=== PATIENT | female | born 1990 | race Caucasian/White ===

== ENCOUNTER 2020-03-31 17:54 | Inpatient (IN) ==
--- OUTSIDE RECORDS SUMMARY | 2020-03-31 17:56 | External Medical Summary | Continuity of Care Document ---
:1990 Author Name Humberto Glasgow Address Unavailable Unavailable , Care Team Providers Name Role Phone Maryjo Palomino M.D. Unavailable [email or web address]rocio [place] M.D. Unavailable [email or web address] Marylu [email or web address] Unavailable Unavailable Unavailable Unavailable Unavailable Assessments Assessed Problems:Acute sinusitis Problems Acute sinusitis (461.9) (J01.90) Conjunctivitis (372.30) (H10.9) Allergies and Adverse Reactions Sulfa Drugs (Allergy) Reaction: Hives Medications Amoxicillin 875 MG Oral Tablet; TAKE 1 TABLET EVERY 12 HOURS DAILY. Pee Palomino Start: 27-May-2012 Quantity: 20 Refills: 1 ISOtretinoin CAPS Refills: 0 Tobramycin Sulfate 0.3 % SOLN; INSTILL 1 DROP 3 times daily Pee Peterson Start: 25-Apr-2012 Quantity: 1 5 ML Bottle Refills: 0 Procedures Procedures not documented Immunizations Immunizations not documented Interventions Medication ChangesAmoxicillin 875 MG Oral Tablet - Start Plan of Treatment Planned Observations Planned Goals not documented Results No Known Results Results not documented Encounters Appointment; Serenity Palomino M.D. 27-May-2012 15:15 Encounter Diagnosis: Problem not documented
--- OUTSIDE RECORDS SUMMARY | 2020-03-31 17:57 | External Medical Summary | Continuity of Care Document ---
:1990 Author Name Humberto Glasgow Address Unavailable Unavailable , Care Team Providers Name Role Phone Maryjo Palomino M.D. Unavailable [email or web address] [place] Ambrocio [place] M.D. Unavailable [email or web address] [place] Marylu BREWER Unavailable Unavailable Unavailable Unavailable Unavailable Assessments Assessed Problems:Acute sinusitis Problems Conjunctivitis (372.30) (H10.9) Acute sinusitis (461.9) (J01.90) Allergies and Adverse Reactions Sulfa Drugs (Allergy) Reaction: Hives Medications ISOtretinoin CAPS Refills: 0 Tobramycin Sulfate 0.3 % SOLN; INSTILL 1 DROP 3 times daily Pee Peterson Start: 25-Apr-2012 Quantity: 1 5 ML Bottle Refills: 0 Amoxicillin 875 MG Oral Tablet; TAKE 1 TABLET EVERY 12 HOURS DAILY. Pee Palomino Start: 27-May-2012 Quantity: 20 Refills: 1 Procedures Procedures not documented Immunizations Immunizations not documented Interventions Medication ChangesAmoxicillin 875 MG Oral Tablet - Start Plan of Treatment Planned Observations Planned Goals not documented Results No Known Results Results not documented Encounters Appointment; Serenity Palomino M.D. 27-May-2012 15:15 Encounter Diagnosis: Problem not documented
--- NOTE | 2020-03-31 18:48 | Emergency Department Note ---
Impression & Plan Chest pain, Elevated troponin, Abnormal EKG ED Provider Note NAME: BETTINA MORALES AGE: 29 SEX: F : 1990 ARRIVES VIA: Walk-In INFORMANT: Patient, ED PROVIDER(S): Matthew Don DO CHIEF COMPLAINT: Chest pain HPI: Patient is a 29-year-old female with a past medical history of pericarditis that presents the ER for chest pain. She notes that she has had pericarditis twice. She had it once back in 2015 and once this past September when she completed treatment. Since September she has had chest pain off and on about once a week. She notes that recently this morning at around 4 AM it has been persistent. She describes it as a heaviness left side of her chest and goes into her left arm. It has been constant. Describes as a 4 out of 10. She notes she does have a knot in her stomach. No abdominal pain vomiting or diarrhea. No dysuria urgency or frequency. Patient denies diabetes, hypertension, hyperlipidemia, CAD, history of sudden at a young age, and smoking. Patient denies swelling of calves, recent trips, history of immobilization or recent surgery, prior history of DVT, hemoptysis, or history of malignancy. Admits to estrogen-based control. She does believe the pain is better with up walking around and worse with rest. Does not change with sitting up or or breathing but is better when she is up moving around. ROS: See above HPI for pertinent positives & negatives. A total of 10 systems reviewed and were otherwise negative. PAST MEDICAL HISTORY:See Below PAST SURGICAL HISTORY:See Below FAMILY HISTORY:See Below SOCIAL HISTORY:See Below HOME MEDICATIONS:See Below ALLERGIES:See Below VITALS:See Below PHYSICAL EXAMINATION: GENERAL: Sitting up in bed, alert, well appearing, well nourished, no distress, non-toxic EYE EXAM: normal conjunctiva. PERRL and EOM's grossly intact. OROPHARYNX: no exudate, no erythema, lips, buccal mucosa, and tongue normal and mucous membranes are moist NECK: supple, no nuchal rigidity, no adenopathy, non-tender LUNGS: Clear to auscultation. Normal chest wall mechanics HEART: no murmurs, S1 normal and S2 normal ABDOMEN: abdomen soft, non-tender, normo-active bowel sounds, no masses, no rebound or guarding. BACK: Back is symmetrical on inspection and there is no deformity, no midline tenderness, no CVA tenderness. SKIN: no rashes and no bruising UPPER EXTREMITIES: upper extremities are grossly normal. LOWER EXTREMITIES: No pitting edema. Calves are equal bilateral NEURO EXAM: Normal sensorium, cranial nerves II-XII grossly intact, normal speech, no gross weakness of arms, no gross weakness of legs. MEDICAL DECISION MAKING: Patient is a 29-year-old female with a past medical history of pericarditis who presents the ER for chest pain. She notes that this is been present intermittently since September 2019. She gets it about 1-2 times a week. Patient also started this morning around 4 AM and has been severe and persistent. Feels like her previous pericarditis. She denies any fevers or recent sickness. It is not positional. She has no cardiac or PE risk factors with the exception that she takes control. CBC shows no significant leukocytosis or anemia. INR was unremarkable. BMP along with LFTs bilirubin and lipase were normal. TSH was normal. Troponin was elevated 0.055. D-dimer is negative. She was tachycardic. EKG showed new ST wave changes in the inferior and lateral leads. Short [place] interval. Epic was reviewed and recent negative dobutamine stress this November. This in combination with her age and history and presentation I do not feel this consistent with ACS. I did discuss this with cardiology and they agreed. She was given aspirin. Did treat her with colchicine as well. Updated the patient at bedside. Discussed with the hospitalist patient will be admitted for further work-up of her likely shalini/pericarditis. Bedside ultrasound performed by myself focus limited cardiac shows no pericardial effusion. Triage Nursing notes reviewed. Prior medical records reviewed Vital Signs: reviewed and remarkable for tachycardic Differential diagnosis: Differential diagnoses includes but is not limited to acute coronary syndrome, myocardial infarction, pericarditis, pulmonary embolus, aortic dissection, pneumonia, pneumothorax, musculoskeletal, shingles, esophageal. ER treatment provided: See below Diagnostics interpreted by me: ECG: Sinus rhythm rate of 99 Normal axis Short [place] Nonspecific ST wave changes in the inferior and lateral leads Normal QTC ST wave changes are new in comparison to her old EKG on December 30, 2019 Cardiac Monitoring: An order was placed for continuous cardiac monitoring. The monitor shows a rate of 105 with sinus rhythm. Laboratory studies: As stated above and show below. Imaging studies: Portable AP upright 1 view of the chest shows no focal infiltrate. Consultation(s): Discussed with Dr. Rodriguez who for admission to the [facility] hospitalist team. Discussed with Dr. Damir Sanders from [facility] cardiology. Agrees with colchicine and treatment as pericarditis at this time. ED COURSE: Procedures: none Critical Care: None Past Med/Surg History Social History Feels Safe at Home: Yes Smoking Status: Never smoker Allergies Allergies Allergy/AdvReac Type Severity Reaction Status Date / Time Sulfa (Sulfonamide Allergy Intermediate Rash/Hives Verified 03/31/20 19:40 Antibiotics) Home Meds Home Medications Medication Instructions Recorded Confirmed levonorgestrel-ethinyl estrad 1 tab PO DAILY 03/31/20 03/31/20 [Cyndi (28)] omeprazole magnesium [Prilosec OTC] 20 mg PO DAILY PRN 03/31/20 03/31/20 Results & Data (ED) Vital Signs Vital Signs - 24 hr 03/31/20 17:58 03/31/20 18:47 03/31/20 19:56 Temperature 36.8 C Temperature Source Oral Pulse Rate 104 H Pulse Rate [Apical] 97 H Respiratory Rate 19 17 Respiratory Effort / Characteristics Non-Labored Spontaneous Respiratory Depth Normal Respiratory Pattern Regular Blood Pressure 125/91 Blood Pressure [Left Arm] 117/77 Blood Pressure Mean 102 Blood Pressure Mean [Left Arm] 90 Blood Pressure Position Sitting Blood Pressure Position [Left Arm] Sitting Pulse Oximetry 100 97 98 Oxygen Delivery Method Room Air Room Air Sepsis Recent Fever Within 48 Hours No Sepsis Action Taken by Nursing No Action Required Laboratory Data Result diagrams: 03/31/20 18:40 03/31/20 18:40 Lab Results 03/31/20 03/31/20 03/31/20 Range/Units 18:40 18:40 18:40 WBC 8.62 (4.8-10.8) K/uL RBC 4.38 (4.2-5.4) M/uL Hgb 14.5 (12.0-16.0) g/dL Hct 41.4 (37-47) % MCV 94.5 (80-100) fL MCH 33.1 (25-34) pg MCHC 35.0 (32-36) g/dL RDW Std Deviation 40.5 (36.4-46.3) fL RDW Coeff of Dyan 11.9 (11.5-14.5) % Plt Count 266 (130-400) K/uL MPV 9.7 (7.4-10.4) fL Immature Gran % (Auto) 0.1 % Neut % (Auto) 71.3 % Lymph % (Auto) 23.5 % Reynolds % (Auto) 4.9 % Eos % (Auto) 0.1 % Baso % (Auto) 0.1 % Immature Gran # (Auto) 0.01 (0.00-0.02) K/uL Neut # (Auto) 6.14 (1.4-6.5) K/uL Lymph # (Auto) 2.03 (1.2-3.4) K/uL Reynolds # (Auto) 0.42 (0.11-0.59) K/uL Eos # (Auto) 0.01 (0-0.5) K/uL Baso # (Auto) 0.01 (0-0.2) K/uL PT 10.7 (9.0-12.0) Seconds INR 1.0 (0.9-1.1) APTT 23.9 (21.0-31.0) Seconds PTT Ratio 0.9 D-Dimer < 190 (0-500) ug/L FEU Sodium 142 (136-145) mmol/L Potassium 3.5 (3.5-5.1) mmol/L Chloride 112 H (98-107) mmol/L Carbon Dioxide 24 (21-32) mmol/L Anion Gap 6.0 (3-11) BUN 10 (7-18) mg/dl Creatinine 0.97 (0.6-1.2) mg/dl Est Cr Clr Drug Dosing 77.0 ml/min Est GFR ( Amer) 91.5 Est GFR (Non-Af Amer) 78.9 BUN/Creatinine Ratio 9.8 L (10-20) Glucose 125 H (70-99) mg/dl Calcium 8.9 (8.5-10.1) mg/dl Total Bilirubin 0.3 (0.2-1) mg/dl AST 11 L (15-37) U/L ALT 18 (12-78) U/L Alkaline Phosphatase 50 (45-117) U/L Troponin I 0.055 H* (0-0.045) ng/ml Total Protein 7.5 (6.4-8.2) gm/dl Albumin 4.1 (3.4-5.0) gm/dl Globulin 3.4 (2.5-4.0) gm/dl Albumin/Globulin Ratio 1.2 (0.9-2) Lipase 122 (73-393) U/L TSH 1.740 (0.300-4.500) uIu/ml Administered Medications Discontinued Medications Aspirin (Aspirin) 324 mg PO NOW STA Stop: 03/31/20 19:38 Last Admin: 03/31/20 19:55 Dose: 324 mg Documented by: [id number] Colchicine (Colcrys) 0.6 mg PO NOW ONE Stop: 03/31/20 19:50 Last Admin: 03/31/20 19:55 Dose: 0.6 mg Documented by: [id number] Discharge Plan Visit Data Chief Complaint: Cardiac Assessment Stated Complaint: LEFT-SIDED CHEST PRESSURE ED Provider: Matthew Don Discharge Problem: Chest pain, Elevated troponin, Abnormal EKG Discharge Instructions Interventions: ED Discharge Assessment Last Done: 03/31/20 21:21 Forms Stand Alone Forms: [facility] [place] Prescriptions Prescriptions: No Action levonorgestrel-ethinyl estrad [Cyndi (28)] 0.15-0.03 mg tablet 1 tab PO DAILY RF: 0 Prilosec OTC 20 mg Tablet,Delayed Release (Dr/Ec) 20 mg PO DAILY PRN (Reason: Acid Reflux) RF: 0 Discharge Problem: Chest pain Qualifiers: Chest pain type: unspecified Qualified Code(s): R07.9 - Chest pain, unspecified
[2020-03-31 18:54] LABS: Basophils # (auto) 0.01 K/uL (0-0.2); Basophils % (auto) 0.1 %; Eosinophils # (auto) 0.01 K/uL (0-0.5); Eosinophils % (auto) 0.1 %; Hematocrit (blood only) 41.4 % (37-47); Hemoglobin 14.5 g/dL (12.0-16.0); Immature Granulocytes # (auto) 0.01 K/uL (0.00-0.02); Immature Granulocytes % (auto) 0.1 %; Lymphocytes # (auto) 2.03 K/uL (1.2-3.4); Lymphocytes % (auto) 23.5 %; Mean Corpuscular Hemoglobin 33.1 pg (25-34); Mean Corpuscular Volume 94.5 fL (80-100); Mean Platelet Volume 9.7 fL (7.4-10.4); Monocytes # (auto) 0.42 K/uL (0.11-0.59); Monocytes % (auto) 4.9 %; Neutrophils # (auto) 6.14 K/uL (1.4-6.5); Neutrophils % (auto) 71.3 %; Platelet Count 266 K/uL (130-400); RDW Coefficient of Variation 11.9 % (11.5-14.5); RDW Standard Deviation 40.5 fL (36.4-46.3); Red Blood Count 4.38 M/uL (4.2-5.4); White Blood Count 8.62 K/uL (4.8-10.8)
[2020-03-31 19:06] LABS: D Dimer < 190 ug/L FEU (0-500); Partial Thromboplastin Ratio 0.9; Partial Thromboplastin Time 23.9 Seconds (21.0-31.0); Prothrombin Time 10.7 Seconds (9.0-12.0)
[2020-03-31 19:11] LABS: Albumin Level 4.1 gm/dl (3.4-5.0); BUN Creatinine Ratio 9.8 (10-20); Calcium 8.9 mg/dl (8.5-10.1); Est GFR (African American) 91.5; Est GFR (Non-African American) 78.9; Potassium 3.5 mmol/L (3.5-5.1)
--- NOTE | 2020-03-31 19:16 | XRay Report ---
XR chest 1V portable CLINICAL HISTORY: Atypical chest pain COMPARISON STUDY: No previous studies for comparison. FINDINGS: The cardiac and mediastinal contours are normal. There is no evidence of focal pulmonary co nsolidation. There is no evidence of failure. No pleural effusions are visualized.[ IMPRESSION: No active disease in the chest. ACT 112: Negative or not required by law. Electronically signed by: Darinel Pereira M.D. 03/31/2020 7:15 PM
[2020-03-31 19:30] LABS: Albumin Globulin Ratio 1.2 (0.9-2); Bilirubin,Total 0.3 mg/dl (0.2-1); Globulin 3.4 gm/dl (2.5-4.0); Thyroid Stimulating Hormone 1.74 uIu/ml (0.300-4.500); Total Protein 7.5 gm/dl (6.4-8.2); Troponin I 0.055 ng/ml (0-0.045)
[2020-03-31] MEDS ORDERED: ASPIRIN CHEW 324 MG PO STA (19:37)
[2020-03-31] MEDS ORDERED: COLCHICINE 0.6 MG TAB PO ONE (19:49)
[2020-03-31] MEDS ORDERED: POLYETHYLENE (MIRALAX) 17 GM PACK PO PRN (22:08)
[2020-03-31] MEDS ORDERED: NITROGLYCERIN SL 0.4 MG/TAB TAB SL PRN (22:08)
[2020-03-31] MEDS ORDERED: MoRPHine SULFATE 2 MG/ML CARP IV PRN (22:08)
[2020-03-31] MEDS ORDERED: ONDANSETRON INJ 2 MG/ML 2 ML VIAL IV PRN (22:08)
[2020-03-31] MEDS ORDERED: ACETAMINOPHEN 325 MG TAB PO PRN (22:08)
[2020-03-31] MEDS ORDERED: PANTOprazole 40 MG TAB PO PRN (22:12)
[2020-03-31] MEDS: SODIUM CHLORIDE 0.9% 1000ML 1,000 ML IV SCH (23:15)
--- NOTE | 2020-04-01 00:02 | History and Physical Report ---
DATE OF ADMISSION: 03/31/2020 CHIEF COMPLAINT: Chest pain. HISTORY OF PRESENT ILLNESS: A 29-year-old female with past medical history significant for recurrent pericarditis, presents with chest pain. The patient has finished a course of colchicine in September, but she says still has some lingering chest pains. Recently saw cardiology and in November she had a stress echo which was negative, but today morning she woke up with severe chest pain on the left side. It was more severe than her lingering chest pain and there was also some tingling feeling in her left hand which prompted her to come to the ER. Her troponin is slightly elevated at 0.05. ER physician notified cardiology paraprofessional aide and advised to give colchicine. Currently resting comfortably and hemodynamically stable, still has mild chest discomfort. The pain is not associated with any position. Denies any shortness of breath. No cough, no fever, no chills, no headache, no blurred vision, no earache, no runny nose, no sore throat. Appetite is okay. Normal bowel and bladder movements. Otherwise active. Denies any sick contacts or travel out of [place] or any loss of smell or taste. ALLERGIES: SULFA ANTIBIOTICS. PAST MEDICAL HISTORY: As mentioned above. PAST SURGICAL HISTORY: Dental surgery, EGDs. MEDICATIONS: On omeprazole 20 mg p.o. daily and levonorgestrel/ethinyl one tablet daily. FAMILY HISTORY: Significant for father had heart disorder, paternal grandfather had heart attack. SOCIAL HISTORY: . No smoking. Alcohol occasionally. No drug use. REVIEW OF SYSTEMS: As per HPI. Rest of review of systems negative. PHYSICAL EXAMINATION: GENERAL: The patient is of moderate build, not in acute distress. VITAL SIGNS: Temperature 37.4, pulse 94, respiratory rate 16, blood pressure 116/70, oxygen 98% on room air. HEENT: No pallor, no icterus. Pupils equal, round, and reactive to light. NECK: No JVD, no neck masses. Supple. CARDIOVASCULAR: S1, S2 heard, regular rate and rhythm, no murmur, no gallop. RESPIRATORY SYSTEM: Normal AP diameter. No accessory muscle use. No wheezing, no crackles. ABDOMEN: Soft, bowel sounds present, nontender. No distention. CENTRAL NERVOUS SYSTEM: Cranial nerves II-XII grossly intact. Nonfocal. EXTREMITIES: No edema, no erythema. LABORATORY DATA: WBC 8.6, hemoglobin 14.5, hematocrit 41.4, platelets 266. PT 10.7, INR 1, APTT 23.9. Sodium 142, potassium 3.5, chloride 112, bicarbonate 24, BUN 10, creatinine 0.9, serum glucose 125, calcium 8.9, total bilirubin 0.3, AST 11, ALT 18, alkaline phosphatase 50. Troponin I of 0.05. Lipase 122. TSH 1.7. EKG: Normal sinus rhythm with sinus arrhythmia at rate of 99, nonspecific ST abnormalities seen. ASSESSMENT AND PLAN: This is a 29-year-old female with history of recurrent pericarditis, who presents with chest pain. 1. Chest pain, possible recurrent pericarditis. History of recurrent pericarditis treated with colchicine. Recent stress echo was unremarkable in November. Troponin is mildly elevated at 0.05. We will trend the cardiac enzymes, echocardiogram. ER physician notified to cardiology paraprofessional aide and recommended colchicine, which the patient has one dose. Will continue with colchicine 0.6 mg p.o. b.i.d. and consult cardiology in a.m. for further recommendations. 2. Gastroesophageal reflux disease, continue omeprazole. 3. Deep venous thrombosis prophylaxis, sequential compression devices. DISPOSITION: Closely monitor in the tele floor. Level 1 full code. MTDD
[2020-04-01 06:13] LABS: Basophils # (auto) 0.01 K/uL (0-0.2); Basophils % (auto) 0.1 %; Eosinophils # (auto) 0.01 K/uL (0-0.5); Eosinophils % (auto) 0.1 %; Hematocrit (blood only) 38.6 % (37-47); Hemoglobin 13.1 g/dL (12.0-16.0); Immature Granulocytes # (auto) 0.02 K/uL (0.00-0.02); Immature Granulocytes % (auto) 0.3 %; Lymphocytes # (auto) 2.18 K/uL (1.2-3.4); Lymphocytes % (auto) 27.3 %; Mean Corpuscular Hemoglobin 32.3 pg (25-34); Mean Corpuscular Hgb Conc 33.9 g/dL (32-36); Mean Corpuscular Volume 95.3 fL (80-100); Mean Platelet Volume 9.7 fL (7.4-10.4); Monocytes # (auto) 0.54 K/uL (0.11-0.59); Monocytes % (auto) 6.8 %; Neutrophils # (auto) 5.24 K/uL (1.4-6.5); Neutrophils % (auto) 65.4 %; Platelet Count 243 K/uL (130-400); RDW Coefficient of Variation 12.1 % (11.5-14.5); RDW Standard Deviation 41.8 fL (36.4-46.3); Red Blood Count 4.05 M/uL (4.2-5.4)
[2020-04-01 06:49] LABS: BUN Creatinine Ratio 11.3 (10-20); Calcium 8.8 mg/dl (8.5-10.1); Creatinine Clr Calc Pharmacy 80.6 ml/min; Est GFR (African American) 98.8; Est GFR (Non-African American) 85.3; Magnesium 2.2 mg/dl (1.8-2.4); Potassium 3.8 mmol/L (3.5-5.1)
[2020-04-01 06:58] LABS: Troponin I 0.053 ng/ml (0-0.045)
[2020-04-01] MEDS ORDERED: COLCHICINE 0.6 MG TAB PO SCH (09:00)
[2020-04-01] MEDS ORDERED: ASPIRIN 81 MG ECTAB PO SCH (09:00)
[2020-04-01] MEDS ORDERED: Nursing to Pharmacy Communication ONE ×2 (11:04→12:18)
[2020-04-01] MEDS ORDERED: IBUPROFEN 600 MG TAB PO ONE (11:15)
[2020-04-01] MEDS: SODIUM CHLORIDE 0.9% 1000ML 1,000 ML IV SCH (12:47)
--- NOTE | 2020-04-01 13:34 | Cardiology Consultation ---
Date of Consultation April 01, 2020 Assessment & Plan (1) Recurrent idiopathic pericarditis: It was my pleasure to see Mrs. Montalvo in consultation today. The pathophysiology, possible causes along with treatment options were discussed with her today at great lengths in terms of her recurrent pericarditis. Luckily, she is known to our clinic and follows with Dr. Alcantar. She was actually supposed to have an MRI performed, unfortunately, it was postponed due to the current pandemic. At this point I believe the most prudent course of action will be to restart her on colchicine which she has tolerated well in the past. I would also recommend PRN ibuprofen 600 mg every 8 hours as needed, to be taken with food. In the past she is taking Pepcid while taking the colchicine and she has tolerated that without any significant issues and I recommend that be restarted as well. It is okay to discharge to home once she feels up to it. My office will call to arrange sooner follow-up and see if we can get the MRI performed sooner rather than later. She also be referred to our rheumatology colleagues for further work-up as well. (2) Anxiety: History of Present Illness Reason for Consultation: Chest pain Requesting Physician: Dr. Reyes Attending Physician: Layla Flower MD History of Present Illness It was my pleasure to see Mrs. Montalvo in consultation today apr 01 2020. She is a very pleasant 29-year-old woman who follows with Dr. Alcantar of our cardiology practice for recurrent pericarditis. She presented to [facility] emergency department in the evening of 03/31/2020 with complaints of chest pain. She has a longstanding history of recurrent idiopathic pericarditis dating back to 2016. She was initially evaluated with a compressor technician in [facility] where she lived at that time and most recently is been following with us at [facility]. She does have chronic nagging chest discomfort which usually feels like little episodes of pressure or sharp stabbing discomfort. However in the morning before arrival she developed a severe heaviness along her left precordium with radiation down her left arm. She states it was constant and rates as a 4 out of 10 on a pain scale. She states that this is similar to her previous flares of her pericarditis in the past. After the symptoms persisted all day she came in the emergency department. Upon arrival her work-up in the emergency department was unremarkable and her care was discussed with the on-call compressor technician who recommended restarting colchicine. She was admitted to telemetry and states that since initiation of the colchicine her chest discomfort has subsided. She states that still there but not nearly as severe as presentation. In the last several weeks she states that she is been in her normal state of health. She does note that she has had increasing levels of stress and possibly anxiety as of late and is starting to question whether or not this might be worsening her chest discomfort. She denies any sick contacts, fevers, myalgias, chills or tick bites. Her most recent flare of pericarditis was in September 2019 at which time she was seen at [facility] and treated with colchicine. She had a stress echocardiogram that was nonischemic at that time and an outpatient cardiac MRI was ordered. Unfortunately MRI has been postponed due to the current pandemic and is not yet been completed. Allergies Allergy/AdvReac Type Severity Reaction Status Date / Time Sulfa (Sulfonamide Allergy Intermediate Rash/Hives Verified 03/31/20 19:40 Antibiotics) Home Medications Home Medications Medication Instructions Recorded Confirmed Type levonorgestrel-ethinyl estrad 1 tab PO DAILY 03/31/20 03/31/20 History [Cyndi (28)] colchicine [Colcrys] 0.6 mg PO BID #60 tab 04/01/20 Rx ibuprofen 600 mg PO Q8H PRN #90 tab 04/01/20 Rx omeprazole 20 mg PO DAILY #30 cap 04/01/20 Rx Patient History Social History Preferred Language: Algerian Communication Ability: Effective Assistant Import Manager Required: No Beliefs That Will Affect Care: None Current Living Situation: Spouse Feels Safe at Home: Yes Safety Concerns: Feels Safe At This Time Smoking Status: Never smoker Do You Dip or Chew Tobacco: No ; Hx Alcohol Use: Yes Alcohol type: beer and wine Hx Substance Use: No Review of Systems Review of Systems: All systems reviewed & are unremarkable except as noted in HPI & below Physical Exam Physical Exam: Physical Exam: General: Awake, alert and oriented x 3. No acute distress. HEENT: Normocephalic, atraumatic. Pupils equal, round and reactive to light and accommodation. Extraocular muscles are intact. Anicteric sclera. Moist mucous membranes. Neck: No JVD. No bruit. Cardiovascular: Regular. No S-4. Normal S-1 and S-2. No S-3. No murmurs, rubs or gallops. Pulmonary: Clear to auscultation bilaterally. No rales, rhonchi, or wheezing. Abdomen: Bowel sounds x 4, soft. No rebound, guarding or tenderness. No organomegaly. Extremities: No clubbing, cyanosis or edema. +2 pedal pulses bilaterally. Skin: Warm and dry. Results & Data ([facility]) Vital Signs (Past 12 Hours) Vital Signs Temp Pulse Pulse Resp BP Pulse Ox 04/01/20 12:32 37.1 C 98 H 18 110/71 96 04/01/20 06:40 36.9 C 87 18 103/69 97 04/01/20 03:41 37.4 C 93 H 20 109/71 97 Laboratory Results Laboratory Results - last 72 hr 03/31/20 03/31/20 03/31/20 18:40 18:40 18:40 WBC 8.62 RBC 4.38 Hgb 14.5 Hct 41.4 MCV 94.5 MCH 33.1 MCHC 35.0 RDW Std Deviation 40.5 RDW Coeff of Dyan 11.9 Plt Count 266 MPV 9.7 Immature Gran % (Auto) 0.1 Neut % (Auto) 71.3 Lymph % (Auto) 23.5 Baldwin % (Auto) 4.9 Eos % (Auto) 0.1 Baso % (Auto) 0.1 Immature Gran # (Auto) 0.01 Neut # (Auto) 6.14 Lymph # (Auto) 2.03 Baldwin # (Auto) 0.42 Eos # (Auto) 0.01 Baso # (Auto) 0.01 ESR PT 10.7 INR 1.0 APTT 23.9 PTT Ratio 0.9 D-Dimer < 190 Sodium 142 Potassium 3.5 Chloride 112 H Carbon Dioxide 24 Anion Gap 6.0 BUN 10 Creatinine 0.97 Est Cr Clr Drug Dosing 77.0 Est GFR ( Amer) 91.5 Est GFR (Non-Af Amer) 78.9 BUN/Creatinine Ratio 9.8 L Glucose 125 H Calcium 8.9 Magnesium Total Bilirubin 0.3 AST 11 L ALT 18 Alkaline Phosphatase 50 Troponin I 0.055 H* C-Reactive Protein Total Protein 7.5 Albumin 4.1 Globulin 3.4 Albumin/Globulin Ratio 1.2 Lipase 122 TSH 1.740 Rheumatoid Factor JUAN Screen Lyme Disease IgG Ab Lyme Disease IgM Ab 03/31/20 04/01/20 04/01/20 22:33 05:28 05:28 WBC 8.00 RBC 4.05 L Hgb 13.1 Hct 38.6 MCV 95.3 MCH 32.3 MCHC 33.9 RDW Std Deviation 41.8 RDW Coeff of Dyan 12.1 Plt Count 243 MPV 9.7 Immature Gran % (Auto) 0.3 Neut % (Auto) 65.4 Lymph % (Auto) 27.3 Baldwin % (Auto) 6.8 Eos % (Auto) 0.1 Baso % (Auto) 0.1 Immature Gran # (Auto) 0.02 Neut # (Auto) 5.24 Lymph # (Auto) 2.18 Baldwin # (Auto) 0.54 Eos # (Auto) 0.01 Baso # (Auto) 0.01 ESR PT INR APTT PTT Ratio D-Dimer Sodium 141 Potassium 3.8 Chloride 112 H Carbon Dioxide 24 Anion Gap 6.0 BUN 10 Creatinine 0.91 Est Cr Clr Drug Dosing 80.6 Est GFR ( Amer) 98.8 Est GFR (Non-Af Amer) 85.3 BUN/Creatinine Ratio 11.3 Glucose 88 Calcium 8.8 Magnesium 2.2 Total Bilirubin AST ALT Alkaline Phosphatase Troponin I 0.057 H* 0.053 H* C-Reactive Protein Total Protein Albumin Globulin Albumin/Globulin Ratio Lipase TSH Rheumatoid Factor JUAN Screen Lyme Disease IgG Ab Lyme Disease IgM Ab 04/01/20 04/01/20 04/01/20 10:35 10:35 10:35 WBC RBC Hgb Hct MCV MCH MCHC RDW Std Deviation RDW Coeff of Dyan Plt Count MPV Immature Gran % (Auto) Neut % (Auto) Lymph % (Auto) Baldwin % (Auto) Eos % (Auto) Baso % (Auto) Immature Gran # (Auto) Neut # (Auto) Lymph # (Auto) Baldwin # (Auto) Eos # (Auto) Baso # (Auto) ESR 7 PT INR APTT PTT Ratio D-Dimer Sodium Potassium Chloride Carbon Dioxide Anion Gap BUN Creatinine Est Cr Clr Drug Dosing Est GFR ( Amer) Est GFR (Non-Af Amer) BUN/Creatinine Ratio Glucose Calcium Magnesium Total Bilirubin AST ALT Alkaline Phosphatase Troponin I 0.061 H* C-Reactive Protein < 0.29 Total Protein Albumin Globulin Albumin/Globulin Ratio Lipase TSH Rheumatoid Factor JUAN Screen Lyme Disease IgG Ab Lyme Disease IgM Ab 04/01/20 04/01/20 10:35 10:35 WBC RBC Hgb Hct MCV MCH MCHC RDW Std Deviation RDW Coeff of Dyan Plt Count MPV Immature Gran % (Auto) Neut % (Auto) Lymph % (Auto) Baldwin % (Auto) Eos % (Auto) Baso % (Auto) Immature Gran # (Auto) Neut # (Auto) Lymph # (Auto) Baldwin # (Auto) Eos # (Auto) Baso # (Auto) ESR PT INR APTT PTT Ratio D-Dimer Sodium Potassium Chloride Carbon Dioxide Anion Gap BUN Creatinine Est Cr Clr Drug Dosing Est GFR ( Amer) Est GFR (Non-Af Amer) BUN/Creatinine Ratio Glucose Calcium Magnesium Total Bilirubin AST ALT Alkaline Phosphatase Troponin I C-Reactive Protein Total Protein Albumin Globulin Albumin/Globulin Ratio Lipase TSH Rheumatoid Factor <14 JUAN Screen NEGATIVE Lyme Disease IgG Ab Negative Lyme Disease IgM Ab Negative
[2020-04-01 15:00] LABS: Lyme Ab IgG w/WB Rflx Negative (Negative); Lyme Ab IgM w/WB Rflx Negative (Negative)
--- NOTE | 2020-04-01 16:43 | Discharge Summary ---
Date of Service April 01, 2020 Admission HPI Per Admitting Provider DICTATED BY: Philippe Reyes MD DATE OF ADMISSION: 03/31/2020 CHIEF COMPLAINT: Chest pain. HISTORY OF PRESENT ILLNESS: A 29-year-old female with past medical history significant for recurrent pericarditis, presents with chest pain. The patient has finished a course of colchicine in September, but she says still has some lingering chest pains. Recently saw cardiology and in November she had a stress echo which was negative, but today morning she woke up with severe chest pain on the left side. It was more severe than her lingering chest pain and there was also some tingling feeling in her left hand which prompted her to come to the ER. Her troponin is slightly elevated at 0.05. ER physician notified cardiology professor of education and advised to give colchicine. Currently resting comfortably and hemodynamically stable, still has mild chest discomfort. The pain is not associated with any position. Denies any shortness of breath. No cough, no fever, no chills, no headache, no blurred vision, no earache, no runny nose, no sore throat. Appetite is okay. Normal bowel and bladder movements. Otherwise active. Denies any sick contacts or travel out of [place] or any loss of smell or tas Principal Diagnosis RECURRENT PERICARDITIS Discharge Exam Constitutional WD/WN, vitals as above no acute distress Eyes PERRL, conjunctivae normal, anicteric sclerae ENMT external ear and nose normal, oropharynx normal Neck trachea midline, no thyromegaly Respiratory normal respiratory effort, lungs clear to auscultation Cardiovascular RRR, no murmur, no edema Gastrointestinal (Abdomen) normal bowel sounds, soft, nontender, no hepatosplenomegaly Musculoskeletal no cyanosis or clubbing, extremities motor strength 5/5 Skin no rashes, warm and dry Neurologic PERRL, EOMI, accommodation nl, no face palsy, no dysarthria Psychiatric A+Ox3, euthymic affect Discharge Data Allergies Allergy/AdvReac Type Severity Reaction Status Date / Time Sulfa (Sulfonamide Allergy Intermediate Rash/Hives Verified 03/31/20 19:40 Antibiotics) Consultations 03/31/20 19:50 ED Decision to Admit Stat 04/01/20 08:00 Consult Cardiology Routine Hospital Course (1) Recurrent idiopathic pericarditis: presented with chest pain prior hx of pericarditis was treated with PO Colchicine chest pain has completely resolved no complain of SOB , no fever or chills appreciate input from cardiology recommends to resume Colchicine 0.6 mg BID PRN Ibuprophen 600 mg q8 hrs as need for pain follow up with cardiology in office in 4-6 weeks stable to be discharged home today ELEVATED TROPONIN : Due to pericarditis no evidence of ACS appreciate input from cardiology recent cardiac stress test was negative no chest pain or [place] at present ECHO shows , normal EF , no wall motion abnormality , no pericardial effusion pt will be followed with cardiology in clinic scheduled for cardiac MRI as out patient DISPOSITION : discharged home today Total Time Total Time Spent Total Time Spent (In Minutes): 35 mins Discharge Plan Discharge Items Patient Disposition: Home - Self-Care Reason For Visit: CHEST PAIN Discharge Diagnosis: PERICARDITIS Activity: Resume your previous activity Non-emergency contact: Primary Care Provider Call non-emergency contact if: you have any medication questions Follow-up/Referrals: Ronnell Sanders DO [Hydrology Professor] - Jimena Neville DO [Primary Care Provider] - 04/06/20 11:20 am (04/06/2020 11:20 AM Ethan Claudio DO Family Practice [facility] ) Diet: Regular Addtl Attending Provider Instructions: FOLLOW UP WITH CARDIOLOGY , OFFICE WILL CALL YOU WITH APPOINTMENT NEW MEDICATIONS: COLCHICINE 0.6 MG TWICE DAILY IBUPROPHEN 600 MG -1 TABLET EVERY 8 HRS NEEDED FOR PAIN ( TAKE WITH FOOD ) Pending Studies at Discharge: No Stand-Alone Forms: [facility], Smoking Cessation Medications and DC Order Prescriptions: New colchicine [Colcrys] 0.6 mg Tablet 0.6 mg PO BID Qty: 60 RF: 0 ibuprofen 600 mg tablet 600 mg PO Q8H PRN (Reason: pain) Qty: 90 RF: 0 omeprazole 20 mg capsule,delayed release(DR/EC) 20 mg PO DAILY Qty: 30 RF: 2 Continued levonorgestrel-ethinyl estrad [Cyndi (28)] 0.15-0.03 mg tablet 1 tab PO DAILY RF: 0 Discontinued Prilosec OTC 20 mg Tablet,Delayed Release (Dr/Ec) 20 mg PO DAILY PRN (Reason: Acid Reflux) RF: 0 Discharge Orders: Discharge Order (Routine); Ordered 04/01/20 Ordered By: Layla Brown/Other Patient Handouts: Pericarditis Admission Data Admit Date/Time: 03/31/20 20:30 Attending Provider: Layla Flower Admit Provider: Philippe Reyes Primary Care Provider: Jimena Neville Other Providers: Philippe Reyes ; Ronnell Sanders Other Interventions: Discharge Summary Assessment (RN) Last Done: 04/01/20 15:45 DC Date/Time DO NOT enter until pt leaves facility: 04/01/20 17:40
--- NOTE | 2020-04-01 22:17 | Electrocardiogram Report ---
Test Reason : Blood Pressure : / mmHG Vent. Rate : 099 BPM Atrial Rate : 099 BPM P-R Int : 124 ms QRS Dur : 076 ms QT Int : 326 ms P-R-T Axes : 078 080 030 degrees QTc Int : 418 ms Normal sinus rhythm with sinus arrhythmia Possible Left atrial enlargement Nonspecific ST abnormality Abnormal ECG No previous ECGs available Confirmed by Joe Dowling ([id number]) on 04/01/2020 10:16:55 PM Referred By: REFERRED SELF Confirmed By:Joe Dowling
--- NOTE | 2020-04-01 22:45 | Electrocardiogram Report ---
Test Reason : Blood Pressure : / mmHG Vent. Rate : 084 BPM Atrial Rate : 084 BPM P-R Int : 124 ms QRS Dur : 078 ms QT Int : 368 ms P-R-T Axes : 071 080 022 degrees QTc Int : 434 ms Normal sinus rhythm with sinus arrhythmia Normal ECG When compared with ECG of 31-MAR-2020 18:06, No significant change was found Confirmed by Joe Dowling ([id number]) on 04/01/2020 10:45:37 PM Referred By: REFERRED SELF Confirmed By:Joe Dowling
[2020-04-02 11:35] LABS: Anti Nuclear Antibody Screen NEGATIVE (NEGATIVE); Rheumatoid Factor <14 IU/mL (<14)
== END 2020-04-01 17:40 | disposition home or self-care (01) | DRG 316 ==
LOC: ED 17:54 → 2S 20:30

== ENCOUNTER 2022-10-16 10:18 | Inpatient (IN) ==
[2022-10-16] MEDS ORDERED: LIDOCAINE 1% LOCAL 20 ML VIAL INFIL PRN (11:12)
--- NOTE | 2022-10-16 11:18 | History & Physical Report ---
Date of Service October 16, 2022 History of Present Illness Chief Complaint: onset of active labor Primary Care Provider: Jimena Neville, DO 32 F P0000 at 39 wks. admitted to L&D in active labor. GBS is negative. Allergies Allergy/AdvReac Type Severity Reaction Status Date / Time Sulfa (Sulfonamide Allergy Intermediate Rash/Hives Verified 03/31/20 19:40 Antibiotics) Home Medications Medication Instructions Recorded Confirmed Type Vitamin 10/16/22 History calcium carbonate 500 mg calcium 500 mg PO DAILY 10/16/22 10/16/22 History (1,250 mg) chewable tablet Patient History Medical History (Updated 10/16/22 @ 12:43 by Jackelyn Albright RN) Pericarditis Pre-. Established with Cardiology. 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 Review of Systems All systems reviewed & are unremarkable except as noted in HPI & below Physical Exam Constitutional: WD/WN, vitals as above Eyes: PERRL, conjunctivae normal, anicteric sclerae Respiratory: normal respiratory effort, lungs clear to auscultation Cardiovascular: RRR, no murmur, no edema Gastrointestinal (Abdomen): normal bowel sounds, soft, nontender, no hepatosplenomegaly Musculoskeletal: Extremities: extremities normal to inspection Skin: no rashes, warm and dry Neurologic: patellar DTR's 2+ bilat, sensation intact Psychiatric: A+Ox3, euthymic affect Genitourinary: no vaginal lesions, no adnexal mass normal external appearance OB Exam Abdomen: + fundal height, + vertex and + estimated weight (7-8 lbs.) Manual OB Exam: + cervical dilation 5 cm, + cervical effacement 90% and + station -1 OB Exam Monitor Tracing: + external FHT monitor used, + external uterine monitor used, + category I and + normal FHT variability Results & Data ([facility]) Vital Signs (Past 12 Hours) Vital Signs Temp Pulse Resp BP 10/16/22 10:39 113 H 102/64 10/16/22 10:32 36.7 C 113 H 18 Code Status & VTE Plan VTE Prophylaxis Plan VTE Prophylaxis will be ordered: No Monitoring External Monitor Cat 1 with regular contractions
[2022-10-16 12:23] LABS: Hematocrit (blood only) 36.4 % (34.1-44.9); Hemoglobin 12.6 g/dl (12.0-16.0); Mean Corpuscular Hemoglobin 32.7 pg (25.0-34.0); Mean Corpuscular Hgb Conc 34.6 g/dL (32.0-36.0); Mean Corpuscular Volume 94.5 fL (80.0-100.0); Mean Platelet Volume 10.4 fL (9.4-12.3); Platelet Count 258 K/uL (130-400); RDW Coefficient of Variation 12.4 % (11.5-14.5); RDW Standard Deviation 42.7 fL (36.4-46.3); Red Blood Count 3.85 M/uL (3.93-5.22); White Blood Count 13.01 K/ul (4.8-10.8)
[2022-10-16] MEDS: LACTATED RINGER'S 1,000 ML IV PRN ×3 (15:00→20:41)
[2022-10-16] MEDS ORDERED: ePHEDrine sulfate 50 MG/ML AMP ONE (15:15)
[2022-10-16] MEDS ORDERED: SODIUM CHLORIDE 0.9% INJ 10 ML VIAL ONE (15:15)
[2022-10-16] MEDS ORDERED: BUPIVACAINE 0.25% 30 ML VIAL ONE (15:15)
[2022-10-16] MEDS ORDERED: fentaNYL citrate 100 MCG/2 ML VIAL ONE (15:15)
[2022-10-16] MEDS ORDERED: LIDOCAINE 2%/EPINEPHRINE 1:200,000 20 ML SDV ONE (15:16)
[2022-10-16] MEDS ORDERED: fentaNYL 2MCG/ML ROPIVACAINE 1.25MG/ML 100 ML BAG EPI ONE (15:16)
[2022-10-16] MEDS ORDERED: ePHEDrine sulfate 50 MG/ML AMP IV PRN (15:40)
[2022-10-16] MEDS ORDERED: NALOXONE HCL 1 MG in SODIUM CHLORIDE 0.9% 1000ML 1,000 ML IV PRN (15:40)
[2022-10-16] MEDS ORDERED: diphenhydrAMINE 50 MG/ML VIAL IV PRN (15:40)
[2022-10-16] MEDS ORDERED: ONDANSETRON INJ 2 MG/ML 2 ML VIAL IV PRN (15:40)
[2022-10-16] MEDS ORDERED: fentaNYL 2MCG/ML ROPIVACAINE 1.25MG/ML 100 ML BAG EPI PRN (15:40)
[2022-10-16] MEDS ORDERED: NALOXONE HCL 0.4 MG/1 ML VIAL/CARP IV PRN (15:40)
[2022-10-16] MEDS ORDERED: NALBUPHINE HCL INJ 10 MG/ML AMP IV PRN (15:40)
--- NOTE | 2022-10-16 15:40 | Anesthesiology Consultation ---
Date of Service October 16, 2022 Assessment & Plan ASA ASA2 Proposed Anesthesia Anesthesia Type: Labor Epidural Risk / Benefits Reviewed With: PT / POA / Parent / Guardian, Accepts Plan and Informed Consent Obtained History Height/Weight Height: 5 ft 7.5 in Weight: 67.132 kg Allergies Allergy/AdvReac Type Severity Reaction Status Date / Time Sulfa (Sulfonamide Allergy Intermediate Rash/Hives Verified 03/31/20 19:40 Antibiotics) Medications Home Medications Medication Instructions Recorded Confirmed Last Taken Vitamin 10/16/22 10/15/22 calcium carbonate 500 mg calcium 500 mg PO DAILY 10/16/22 10/16/22 Unknown (1,250 mg) chewable tablet Past Medical History Medical History Pericarditis Pre-. Established with Cardiology. Exercise / Class Metabolic Activity II 4-5 Yardwork/Stairs/Walk up hill Past Surgical History Surgical History [place] teeth extracted Past Anesthesia History No Hx of Anesthesia Complications and No Family Hx of Anesthesia Complications History of PONV No Hx of PONV and No Hx of Motion Sickness Social History Smoking Status: Never smoker Hx Alcohol Use: Yes Alcohol type: beer and wine alcohol intake frequency: holidays/special occasions only Hx Substance Use: No substance use type: does not use Review of Systems denies fever/cough/ colds/ chest pain/ SOB/ YAMILA denies YAMILA Physical Exam Vital Signs Last Vital Signs Temp 37.0 C 10/16/22 15:05 Pulse 91 H 10/16/22 15:05 Resp 18 10/16/22 15:05 BP 91/53 L 10/16/22 15:05 ENMT Mouth: no TMJ abnormality and no dentition abnormality Thyromental Distance: > or= 3.5 Finger Breadths Mallampati Class: II Neck neck extension not limited Respiratory normal respiratory effort; no respiratory distress Auscultation: lungs clear to auscultation bilaterally Cardiovascular Rate/Rhythm: regular rate and regular rhythm Neurologic moves all extremities Psychiatric Orientation: alert and oriented x 3 Testing Laboratory Results 10/16/22 11:31
--- NOTE | 2022-10-16 16:28 | Labor Progress Brief Note ---
Date of Service October 16, 2022 Assessment & Plan Admission and Anticipated Discharge Date Admission Date: October 16, 2022 Physical Exam Genitourinary: Manual OB Exam: + cervical dilation 8 cm, + cervical effacement 90% and + station -1 OB Exam Monitor Tracing: + external FHT monitor used, + external uterine monitor used, + category I and + normal FHT variability Results & Data ([facility]) Vital Signs (Past 12 Hours) Vital Signs Temp Pulse Resp BP Pulse Ox 10/16/22 16:24 110 H 101/57 L 10/16/22 16:23 111 H 99 10/16/22 16:18 106 H 99/56 L 98 10/16/22 16:16 111 H 95/56 L 10/16/22 16:14 107 H 91/51 L 10/16/22 16:13 111 H 98 10/16/22 16:12 108 H 95/50 L 10/16/22 16:10 111 H 102/59 L 10/16/22 16:08 116 H 73/48 L 98 10/16/22 16:06 110 H 89/52 L 10/16/22 16:03 107 H 97 10/16/22 16:04 100 H 96/51 L 10/16/22 16:02 103 H 102/54 L 10/16/22 16:00 102 H 102/57 L 10/16/22 15:58 97 H 98 10/16/22 15:59 96 H 106/59 L 10/16/22 15:57 107 H 91 10/16/22 15:56 102 H 107/58 L 10/16/22 15:54 20 10/16/22 15:54 107 H 20 118/57 L 10/16/22 15:53 108 H 98 10/16/22 15:48 109 H 99 10/16/22 15:05 37.0 C 91 H 18 91/53 L 10/16/22 12:05 36.7 C 89 20 113/74 10/16/22 11:31 108 H 127/71 10/16/22 10:39 113 H 102/64 10/16/22 10:32 36.7 C 113 H 18 102/64
--- NOTE | 2022-10-16 19:28 | Labor Progress Brief Note ---
Date of Service October 16, 2022 Assessment & Plan Admission and Anticipated Discharge Date Admission Date: October 16, 2022 Physical Exam Genitourinary: Manual OB Exam: + cervical dilation 10 cm, + cervical effacement 100%, + station 0 and + 1 and + amniotic fluid clear OB Exam Monitor Tracing: + external FHT monitor used, + external uterine monitor used, + category I and + normal FHT variability AROM with Amni-hook clear fluid Results & Data ([facility]) Vital Signs (Past 12 Hours) Vital Signs Temp Pulse Resp BP Pulse Ox 10/16/22 19:23 120 H 100 10/16/22 19:18 89 100 10/16/22 19:13 97 H 100 10/16/22 19:08 114 H 100 10/16/22 19:03 92 H 100 10/16/22 18:58 97 H 100 10/16/22 18:55 89 108/60 10/16/22 18:53 102 H 100 10/16/22 18:48 99 H 100 10/16/22 18:43 92 H 100 10/16/22 18:41 101 H 18 98/62 L 10/16/22 18:38 91 H 100 10/16/22 18:33 98 H 100 10/16/22 18:28 113 H 100 10/16/22 18:25 93 H 18 94/58 L 10/16/22 18:23 100 H 98 10/16/22 18:18 95 H 100 10/16/22 18:13 98 H 100 10/16/22 18:08 88 100 10/16/22 18:09 85 18 107/67 10/16/22 18:03 89 100 10/16/22 17:58 98 H 100 10/16/22 17:53 84 100 10/16/22 17:54 82 109/65 10/16/22 17:48 86 100 10/16/22 17:43 92 H 100 10/16/22 17:38 91 H 18 107/69 100 10/16/22 17:33 91 H 100 10/16/22 17:28 82 100 10/16/22 17:24 79 108/67 10/16/22 17:23 82 100 10/16/22 17:18 85 100 10/16/22 17:13 96 H 100 10/16/22 17:10 98 H 109/64 10/16/22 17:08 99 H 100 10/16/22 17:03 87 100 10/16/22 16:58 103 H 100 10/16/22 16:55 105 H 20 97/62 L 10/16/22 16:53 94 H 100 10/16/22 16:48 92 H 100 10/16/22 16:43 117 H 100 10/16/22 16:38 111 H 100 10/16/22 16:33 103 H 99 10/16/22 16:34 106 H 20 101/59 L 10/16/22 16:28 99 H 100 10/16/22 16:29 101 H 20 102/61 10/16/22 16:24 110 H 20 101/57 L 10/16/22 16:23 111 H 99 10/16/22 16:18 106 H 20 99/56 L 98 10/16/22 16:16 111 H 95/56 L 10/16/22 16:14 107 H 20 91/51 L 10/16/22 16:13 111 H 98 10/16/22 16:12 108 H 20 95/50 L 10/16/22 16:10 111 H 102/59 L 10/16/22 16:08 116 H 20 73/48 L 98 10/16/22 16:06 110 H 89/52 L 10/16/22 16:03 107 H 97 10/16/22 16:04 100 H 20 96/51 L 10/16/22 16:02 103 H 102/54 L 10/16/22 16:00 102 H 20 102/57 L 10/16/22 15:58 97 H 98 10/16/22 15:59 96 H 20 106/59 L 10/16/22 15:57 107 H 91 10/16/22 15:56 102 H 107/58 L 10/16/22 15:54 20 10/16/22 15:54 107 H 20 118/57 L 10/16/22 15:53 108 H 98 10/16/22 15:48 109 H 99 10/16/22 15:05 37.0 C 91 H 18 91/53 L 10/16/22 12:05 36.7 C 89 20 113/74 10/16/22 11:31 108 H 127/71 10/16/22 10:39 113 H 102/64 10/16/22 10:32 36.7 C 113 H 18 102/64
[2022-10-16] MEDS: OXYTOCIN 30 UNITS/500 ML BAG IV PRN (21:45)
--- NOTE | 2022-10-16 22:12 | Delivery Summary ---
Vaginal Delivery Summary Date of Service October 16, 2022 Vaginal Delivery Summary Delivery Note live male KELLY over intact perineum with delayed cord clamping and Apgars 7/9 weight pending. Cord blood obtained followed by spontaneous delivery of intact placenta. Small first degree tear repaired with 3/0 Vicryl suture. EBL 300 ml. Final sponge, needle and instrument count are correct. Mom and baby stable.
[2022-10-16] MEDS ORDERED: HYDROCORTISONE ACETATE 25 MG SUPP PR PRN (22:15)
[2022-10-16] MEDS ORDERED: ACETAMINOPHEN 325 MG TAB PO PRN (22:15)
[2022-10-16] MEDS ORDERED: BENZOCAINE 20% AER SPR 82.5 GM CAN EXT PRN (22:15)
[2022-10-16] MEDS ORDERED: DIPHTHERIA/TETANUS/PERTUSSIS 0.5 ML SYR/VIAL IM ONE (22:15)
[2022-10-16] MEDS ORDERED: OXYTOCIN 30 UNITS/500 ML BAG IV PRN (22:15)
[2022-10-16] MEDS ORDERED: ACETAMINOPHEN 325 MG TAB ONE (23:08)
--- NOTE | 2022-10-16 23:24 | Anesthesia Procedure Note ---
Date of Service October 16, 2022 Anesthesia Post Epidural Note Vital Signs Vital Signs: Temp Pulse Resp BP Pulse Ox 36.9 C 96 H 16 102/63 96 10/16/22 22:27 10/16/22 23:12 10/16/22 22:57 10/16/22 23:12 10/16/22 21:54 Pain Intensity Bilateral Abdomen: Pain Intensity: 0 Head: Pain Intensity: 3 Notes Mental Status: alert / awake / arousable and participated in evaluation Nausea / Vomiting: adequately controlled Pain: adequately controlled Airway Patency, RR, SpO2: stable & adequate BP & HR: stable & adequate Hydration State: stable & adequate Neuraxial Anesthesia: was administered and sensory block is resolving Anesthetic Complications: no major complications apparent and Pt Satisfied with anesthetic care Epidural: Removed without complications and With tip intact
[2022-10-17] MEDS: OXYTOCIN 30 UNITS/500 ML BAG IV PRN (00:12)
[2022-10-17 07:40] LABS: Hematocrit (blood only) 28.9 % (34.1-44.9); Hemoglobin 10.1 g/dl (12.0-16.0); Mean Corpuscular Hemoglobin 33.4 pg (25.0-34.0); Mean Corpuscular Hgb Conc 34.9 g/dL (32.0-36.0); Mean Corpuscular Volume 95.7 fL (80.0-100.0); Mean Platelet Volume 9.9 fL (9.4-12.3); Platelet Count 213 K/uL (130-400); RDW Coefficient of Variation 12.5 % (11.5-14.5); Red Blood Count 3.02 M/uL (3.93-5.22); White Blood Count 16.52 K/ul (4.8-10.8)
[2022-10-17] MEDS: IBUPROFEN 600 MG TAB PO PRN ×4 (07:59→21:05)
[2022-10-17] MEDS: DOCUSATE SODIUM 100 MG CAP PO SCH ×2 (07:59→21:04)
[2022-10-17] MEDS: FERROUS SULFATE 325 MG TAB PO SCH (07:59)
[2022-10-17] MEDS: CALCIUM CARBONATE 500 MG CHEWABLE TAB PO SCH (07:59)
[2022-10-17] MEDS: PRENATAL VITAMIN 1 TAB PO SCH (07:59)
--- NOTE | 2022-10-17 10:08 | Obstetrical Progress Note ---
Date of Service October 17, 2022 Assessment & Plan Admission and Anticipated Discharge Date Admission Date: October 16, 2022 Subjective Patient is seen and examined. She feels well, no complaints. Ambulating without dizziness Voiding without difficulty Tolerating regular diet with out N&V Bleeding is minimal No fever/ chills/ CP/ SOB/ N&V/ Leg pain Breast feeding without problems Vital Signs Temp Pulse Pulse Pulse Resp BP BP 10/17/22 07:25 36.7 C 78 18 100/63 10/17/22 04:15 36.7 C 93 H 16 106/72 10/17/22 01:11 36.6 C 91 H 16 107/72 10/17/22 01:00 37.0 C 18 10/17/22 00:35 16 10/16/22 23:57 36.8 C 18 10/16/22 23:27 16 10/16/22 22:57 16 10/16/22 22:42 16 10/16/22 22:27 36.9 C 16 10/16/22 22:12 18 10/17/22 00:53 95 H 109/66 10/17/22 00:34 101 H 100/62 10/17/22 00:29 106 H 109/63 10/17/22 00:24 96 H 101/62 10/17/22 00:19 104 H 106/59 L 10/17/22 00:10 106 H 114/72 10/16/22 23:57 108 H 109/66 10/16/22 23:42 123 H 113/73 10/16/22 23:27 116 H 110/67 10/16/22 23:12 96 H 102/63 10/16/22 22:57 108 H 107/63 10/16/22 22:42 117 H 102/56 L 10/16/22 22:27 121 H 114/58 L 10/16/22 22:12 115 H 109/58 L Pulse Ox O2 Del Method 10/17/22 07:25 96 Room Air 10/17/22 04:15 99 Room Air 10/17/22 01:11 99 Room Air 10/17/22 01:00 10/17/22 00:35 10/16/22 23:57 10/16/22 23:27 10/16/22 22:57 10/16/22 22:42 10/16/22 22:27 10/16/22 22:12 10/17/22 00:53 10/17/22 00:34 10/17/22 00:29 10/17/22 00:24 10/17/22 00:19 10/17/22 00:10 10/16/22 23:57 10/16/22 23:42 10/16/22 23:27 10/16/22 23:12 10/16/22 22:57 10/16/22 22:42 10/16/22 22:27 10/16/22 22:12 Lab Results 10/16/22 10/16/22 10/17/22 Range/Units 11:31 12:49 07:07 WBC 13.01 H 16.52 H (4.8-10.8) K/ul RBC 3.85 L 3.02 L (3.93-5.22) M/uL Hgb 12.6 10.1 L (12.0-16.0) g/dl Hct 36.4 28.9 L (34.1-44.9) % MCV 94.5 95.7 (80.0-100.0) fL MCH 32.7 33.4 (25.0-34.0) pg MCHC 34.6 34.9 (32.0-36.0) g/dL RDW Std Deviation 42.7 43.0 (36.4-46.3) fL RDW Coeff of Dyan 12.4 12.5 (11.5-14.5) % Plt Count 258 213 (130-400) K/uL MPV 10.4 9.9 (9.4-12.3) fL SARS-CoV-2, RNA, NAAT NEGATIVE (NEGATIVE) PE: General: Alert, orientedx3, NAD Abd: soft, NT, fundus firm, below Umbilicus Perineum intact, Lochia rubra minimal Ext; NT, no edema AP: 32 yo s/p , ppd# 1 VSS Afebrile doing well Continue routine care CBC in am All questions were answered D/C home tomorrow Results & Data ([facility]) Vital Signs (Past 12 Hours) Vital Signs Temp Pulse Pulse Pulse Resp BP BP 10/17/22 07:25 36.7 C 78 18 100/63 10/17/22 04:15 36.7 C 93 H 16 106/72 10/17/22 01:11 36.6 C 91 H 16 107/72 10/17/22 01:00 37.0 C 18 10/17/22 00:35 16 10/16/22 23:57 36.8 C 18 10/16/22 23:27 16 10/16/22 22:57 16 10/16/22 22:42 16 10/16/22 22:27 36.9 C 16 10/16/22 22:12 18 10/17/22 00:53 95 H 109/66 10/17/22 00:34 101 H 100/62 10/17/22 00:29 106 H 109/63 10/17/22 00:24 96 H 101/62 10/17/22 00:19 104 H 106/59 L 10/17/22 00:10 106 H 114/72 10/16/22 23:57 108 H 109/66 10/16/22 23:42 123 H 113/73 10/16/22 23:27 116 H 110/67 10/16/22 23:12 96 H 102/63 10/16/22 22:57 108 H 107/63 10/16/22 22:42 117 H 102/56 L 10/16/22 22:27 121 H 114/58 L 10/16/22 22:12 115 H 109/58 L Pulse Ox O2 Del Method 10/17/22 07:25 96 Room Air 10/17/22 04:15 99 Room Air 10/17/22 01:11 99 Room Air 10/17/22 01:00 10/17/22 00:35 10/16/22 23:57 10/16/22 23:27 10/16/22 22:57 10/16/22 22:42 10/16/22 22:27 10/16/22 22:12 10/17/22 00:53 10/17/22 00:34 10/17/22 00:29 10/17/22 00:24 10/17/22 00:19 10/17/22 00:10 10/16/22 23:57 10/16/22 23:42 10/16/22 23:27 10/16/22 23:12 10/16/22 22:57 10/16/22 22:42 10/16/22 22:27 10/16/22 22:12
[2022-10-17] MEDS ORDERED: bisacodyL 5 MG TABEC PO SCH (20:00)
[2022-10-18] MEDS ORDERED: bisacodyL 10 MG SUPP PR PRN
[2022-10-18 07:39] LABS: Basophils # (auto) 0.03 K/uL (0-0.2); Basophils % (auto) 0.3 %; Eosinophils # (auto) 0.07 K/uL (0-0.50); Eosinophils % (auto) 0.6 %; Hematocrit (blood only) 25.8 % (34.1-44.9); Hemoglobin 8.9 g/dl (12.0-16.0); Immature Granulocytes # (auto) 0.14 K/uL (0.00-0.02); Immature Granulocytes % (auto) 1.2 %; Lymphocytes # (auto) 3.59 K/uL (1.2-3.4); Lymphocytes % (auto) 30.9 %; Mean Corpuscular Hemoglobin 33.2 pg (25.0-34.0); Mean Corpuscular Hgb Conc 34.5 g/dL (32.0-36.0); Mean Corpuscular Volume 96.3 fL (80.0-100.0); Monocytes # (auto) 0.57 K/uL (0.24-0.82); Monocytes % (auto) 4.9 %; Neutrophils # (auto) 7.21 K/uL (1.4-6.5); Neutrophils % (auto) 62.1 %; Platelet Count 214 K/uL (130-400); RDW Coefficient of Variation 12.7 % (11.5-14.5); RDW Standard Deviation 43.6 fL (36.4-46.3); Red Blood Count 2.68 M/uL (3.93-5.22); White Blood Count 11.61 K/ul (4.8-10.8)
[2022-10-18] MEDS: FERROUS SULFATE 325 MG TAB PO SCH (08:36)
[2022-10-18] MEDS: PRENATAL VITAMIN 1 TAB PO SCH (08:36)
[2022-10-18] MEDS: DOCUSATE SODIUM 100 MG CAP PO SCH (08:36)
[2022-10-18] MEDS: CALCIUM CARBONATE 500 MG CHEWABLE TAB PO SCH (08:36)
[2022-10-18] MEDS: IBUPROFEN 600 MG TAB PO PRN (08:36)
--- NOTE | 2022-10-18 10:20 | Obstetrical Progress Note ---
Date of Service October 18, 2022 Subjective Ambulation: ambulating normally Voiding: no voiding problems Passing Gas:: Yes Diet Tolerance:: regular diet Lochia:: Small Feeding Type:: breast feeding Current Pain Level(1-10): 0 doing well. plans for d/c Physical Exam Constitutional WD/WN, vitals as above Gastrointestinal (Abdomen) Inspection/Auscultation: abdomen normal to inspection fundus firm below U. abdomen soft and non-tender Musculoskeletal Extremities: extremities normal to inspection Skin no rashes, warm and dry Neurologic patellar DTR's 2+ bilat, sensation intact Psychiatric A+Ox3, euthymic affect Results & Data ([facility]) Vital Signs (Past 12 Hours) Vital Signs Temp Pulse Resp BP Pulse Ox O2 Del Method 10/18/22 07:45 36.5 C 85 16 107/76 98 Room Air 10/17/22 23:45 36.6 C 85 16 102/64 98 Room Air Laboratory Results Laboratory Results - last 72 hr 10/16/22 10/16/22 10/17/22 11:31 12:49 07:07 WBC 13.01 H 16.52 H RBC 3.85 L 3.02 L Hgb 12.6 10.1 L Hct 36.4 28.9 L MCV 94.5 95.7 MCH 32.7 33.4 MCHC 34.6 34.9 RDW Std Deviation 42.7 43.0 RDW Coeff of Dyan 12.4 12.5 Plt Count 258 213 MPV 10.4 9.9 Immature Gran % (Auto) Neut % (Auto) Lymph % (Auto) [place] % (Auto) Eos % (Auto) Baso % (Auto) Neut # (Auto) Lymph # (Auto) [place] # (Auto) Eos # (Auto) Baso # (Auto) Immature Gran # (Auto) SARS-CoV-2, RNA, NAAT NEGATIVE 10/18/22 06:53 WBC 11.61 H RBC 2.68 L Hgb 8.9 L Hct 25.8 L MCV 96.3 MCH 33.2 MCHC 34.5 RDW Std Deviation 43.6 RDW Coeff of Dyan 12.7 Plt Count 214 MPV 10.0 Immature Gran % (Auto) 1.2 Neut % (Auto) 62.1 Lymph % (Auto) 30.9 [place] % (Auto) 4.9 Eos % (Auto) 0.6 Baso % (Auto) 0.3 Neut # (Auto) 7.21 H Lymph # (Auto) 3.59 H [place] # (Auto) 0.57 Eos # (Auto) 0.07 Baso # (Auto) 0.03 Immature Gran # (Auto) 0.14 H SARS-CoV-2, RNA, NAAT
== END 2022-10-18 15:55 | disposition home or self-care (01) | DRG 807 ==
LOC: OPB 10:18 → 4S1 10:21 → 4E2 11:55 → 4S1 12:02 → 4E2 10-17 01:37

== ENCOUNTER 2024-10-02 00:22 | Inpatient (IN) ==
[2024-10-02] MEDS ORDERED: LIDOCAINE 1% LOCAL 20 ML VIAL INFIL PRN (00:57)
[2024-10-02] MEDS: LACTATED RINGER'S 1,000 ML IV SCH (01:00)
[2024-10-02] MEDS ORDERED: LACTATED RINGER'S 1,000 ML IV SCH (01:15)
[2024-10-02 01:22] LABS: Hematocrit (blood only) 35.5 % (37.0-47.0); Hemoglobin 12.6 g/dl (12.0-16.0); Mean Corpuscular Hemoglobin 32.9 pg (25.0-34.0); Mean Corpuscular Hgb Conc 35.5 g/dL (32.0-36.0); Mean Corpuscular Volume 92.7 fL (80.0-100.0); Mean Platelet Volume 9.3 fL (9.4-12.4); Platelet Count 252 K/uL (130-400); RDW Coefficient of Variation 12.2 % (11.5-14.5); RDW Standard Deviation 41.3 fL (36.4-46.3); Red Blood Count 3.83 M/uL (4.20-5.40); White Blood Count 11.61 K/ul (4.8-10.8)
[2024-10-02] MEDS: fentaNYL citrate PF 100 MCG/2 ML VIAL ONE (01:40)
[2024-10-02] MEDS: LIDOCAINE 2%/EPINEPHRINE 1:200,000 20 ML PF ONE (01:41)
[2024-10-02] MEDS: fentANYL 2 MCG/ML BUPIVacaine 0.125%-NSS 100ML BAG ONE (01:42)
--- NOTE | 2024-10-02 01:51 | Anesthesiology Consultation ---
Date of Service October 02, 2024 Assessment & Plan Chart Review Chart Review: Acceptable Risk for Labor Epidural Consults Requested none History Height/Weight Height: 5 ft 7 in Weight: 66.224 kg Allergies Allergy/AdvReac Type Severity Reaction Status Date / Time Sulfa (Sulfonamide Allergy Intermediate Rash/Hives Verified 03/31/20 19:40 Antibiotics) Medications Home Medications Medication Instructions Recorded Confirmed Last Taken Vitamin 10/16/22 10/15/22 calcium carbonate 500 mg PO DAILY 10/16/22 10/16/22 Unknown ibuprofen 600 mg tablet 600 mg PO Q6H PRN fever or pain 10/18/22 Unknown #30 tabs Active Medications Generic Name Dose Route Start Last Admin Trade Name Freq PRN Reason Stop Dose Admin Lactated Ringer's 1,000 mls @ 125 mls/hr 10/02/24 01:15 10/02/24 01:00 Lr IV 10/03/24 01:14 999 mls/hr .Q8H KURTIS Administration Past Medical History Medical History Pericarditis Pre-. Established with Cardiology. Past Surgical History Surgical History [place] teeth extracted Social History Smoking Status: Never smoker Do You Dip or Chew Tobacco: No Hx Alcohol Use: Yes Alcohol type: wine alcohol intake frequency: holidays/special occasions only Hx Substance Use: No substance use type: does not use and former substance user Physical Exam Vital Signs Last Vital Signs Temp 36.8 C 10/02/24 01:12 Pulse 114 H 10/02/24 01:50 Resp 18 10/02/24 01:12 BP 91/60 L 10/02/24 01:50 Pulse Ox 97 10/02/24 01:49 Testing Laboratory Results 10/02/24 01:07
[2024-10-02] MEDS ORDERED: fentaNYL citrate PF 100 MCG/2 ML VIAL EPI PRN (02:00)
[2024-10-02] MEDS ORDERED: BUPIVACAINE 0.25% PF 30 ML VIAL EPI PRN (02:00)
[2024-10-02] MEDS ORDERED: fentANYL 2 MCG/ML BUPIVacaine 0.125%-NSS 100ML BAG EPI PRN (02:00)
[2024-10-02] MEDS ORDERED: NALOXONE HCL 1 MG in SODIUM CHLORIDE 0.9% 1,000 ML IV PRN (02:00)
[2024-10-02] MEDS ORDERED: diphenhydrAMINE 50 MG/ML VIAL IV PRN (02:00)
[2024-10-02] MEDS ORDERED: SODIUM CHLORIDE 0.9% PF INJ 10 ML VIAL EPI PRN (02:00)
[2024-10-02] MEDS ORDERED: LIDOCAINE 2% MPF LOCAL 5 ML VIAL EPI PRN (02:00)
[2024-10-02] MEDS ORDERED: NALOXONE HCL 0.4 MG/1 ML VIAL/CARP IV PRN (02:00)
[2024-10-02] MEDS ORDERED: ROPIVACAINE 0.5% PF 5 MG/ML 20 ML VIAL EPI PRN (02:00)
[2024-10-02] MEDS ORDERED: NALBUPHINE HCL INJ 10 MG/ML AMP IV PRN (02:00)
[2024-10-02] MEDS: ePHEDrine sulfate 50 MG/ML AMP ONE (02:17)
[2024-10-02] MEDS: BUPIVACAINE 0.25% PF 30 ML VIAL ONE (02:17)
[2024-10-02] MEDS: SODIUM CHLORIDE 0.9% PF INJ 10 ML VIAL ONE (02:17)
[2024-10-02] MEDS: ePHEDrine sulfate 50 MG/ML AMP IV PRN (02:30)
[2024-10-02] MEDS: METHYLERGONOVINE MALEATE 0.2 MG/ML AMP IM ONE (04:54)
[2024-10-02] MEDS: OXYTOCIN 30 UNITS/NSS 30 UNITS/500 ML BAG IV PRN (05:01)
[2024-10-02] MEDS ORDERED: ACETAMINOPHEN W/CODEINE #3 1 TAB PO PRN (05:08)
[2024-10-02] MEDS ORDERED: HYDROCORTISONE ACETATE 25 MG SUPP PR PRN (05:08)
[2024-10-02] MEDS ORDERED: OXYTOCIN 30 UNITS/NSS 30 UNITS/500 ML BAG IV PRN (05:08)
[2024-10-02] MEDS ORDERED: ACETAMINOPHEN 325 MG TAB PO PRN (05:08)
[2024-10-02] MEDS ORDERED: BENZOCAINE 20% SPRY 85 APPLN/85 GM CAN EXT PRN (05:08)
[2024-10-02] MEDS ORDERED: oxyCODONE/ACETAMINOPHEN 5mg/325mg TAB PO PRN (05:08)
[2024-10-02] MEDS ORDERED: bisacodyL 10 MG SUPP PR PRN (05:08)
--- NOTE | 2024-10-02 05:14 | Delivery Summary ---
Vaginal Delivery Summary Date of Service October 02, 2024 Vaginal Delivery Summary Patient's been followed in the office for care and delivery. Patient arrived in active labor 7 cm dilated. Blood type is a positive. Gestation was 38 weeks 4 days. Immediately after arrival on the labor floor she received epidural anesthesia from which she got good pain control. She labor down for an hour or so then membranes were ruptured surgically fluid was clear. About an hour later she was ready to push. Head was right on the perineum. She pushed about 3 times. And delivered a live male infant. There was a nuchal cord which was easily easily reduced over the head. Shoulders were delivered without difficulty. Body was delivered without difficulty. Cord was allowed to pulse for 1 full minute after delivery. Cord was then clamped cut by the father. Cord blood was taken. With IV Pitocin running the placenta was removed intact. IM Methergine was also given in the upper thigh. Inspection of the perineum revealed a first-degree laceration. This was repaired anatomically. 3-0 Vicryl was used to approximate the vaginal mucosa out and to beyond the hymenal ring. Deep sutures used approximate the bulbocavernosus muscle. Second deep sutures used approximate the perineal body. Running subcuticular suture was used approximate perineal skin edges following this vag exam revealed no hematoma formation or sponges in the vagina patient tolerated the procedure well. Calculated blood loss was 117 mL.
[2024-10-02] MEDS: BUPIVACAINE 0.25% PF 30 ML VIAL EPI STA (05:15)
[2024-10-02] MEDS: fentaNYL citrate PF 100 MCG/2 ML VIAL EPI STA (05:15)
[2024-10-02] MEDS: LIDOCAINE 2%/EPINEPHRINE 1:200,000 20 ML PF EPI STA (05:20)
[2024-10-02] MEDS: SODIUM CHLORIDE 0.9% PF INJ 10 ML VIAL EPI STA (05:21)
[2024-10-02] MEDS: ONDANSETRON INJ 2 MG/ML 2 ML VIAL IV PRN (06:14)
[2024-10-02] MEDS: DIPHTHER/TETAN/PERTUS Vaccine (Tdap, Adol/Adult) 0.5mL IM ONE (06:49)
--- NOTE | 2024-10-02 07:40 | Anesthesia Procedure Note ---
Date of Service October 02, 2024 Anesthesia Post Epidural Note Vital Signs Vital Signs: Temp Pulse Resp BP Pulse Ox 37.0 C 96 H 18 106/60 98 10/02/24 05:26 10/02/24 07:26 10/02/24 06:11 10/02/24 07:26 10/02/24 04:44 Notes Mental Status: alert / awake / arousable and participated in evaluation Nausea / Vomiting: adequately controlled Pain: adequately controlled Airway Patency, RR, SpO2: stable & adequate BP & HR: stable & adequate Hydration State: stable & adequate Neuraxial Anesthesia: was administered and sensory block is resolving Anesthetic Complications: no major complications apparent Epidural: Removed without complications and With tip intact
[2024-10-02] MEDS: DOCUSATE SODIUM 100 MG CAP PO SCH (08:25)
[2024-10-02] MEDS: PRENATAL VITAMIN 1 TAB PO SCH (08:25)
--- OUTSIDE RECORDS SUMMARY | 2024-10-02 13:35 | External Medical Summary | Summary of Care ---
Author Name Unknown Organization [facility] Address [address] [place] [place] [address] Phone [phone] Care Team Providers Care Apiculture Teacher Name Role Phone Jamin Jimena Marylu TRAN Primary Care Provider [phone] Reason for Visit * Reason Comments Return Visit Encounter Details Date Type Department Care Team ([facility] Contact Info) Description 07/25/2024 9:00 AM EDT Office Visit Gynecology/Obstetric s Nicolette Whitaker [address] [place] [address] Diana Jara PA-C [address] [place] [address] Normal in third trimester*; Family history of trisomy 18; Uterine size date discrepancy Allergies Active Allergy Reactions Criticality Noted Date Comments Sulfa Antibiotics Hives Low 07/24/2019 documented as of this encounter (statuses as of 07/25/2024) Medications Medication Sig Dispensed Refills Start Date End Date Status Tums E-X 750 750 MG Oral Tablet Chewable (calcium CARBonate) Take 1 Tablet by mouth in the morning. Active 28-0.8 MG Oral Tablet Take by mouth. Active documented as of this encounter (statuses as of 07/25/2024) Active Problems Problem Noted Date Diagnosed Date Sinus drainage 04/22/2024 15 weeks gestation of 04/22/2024 Sinus congestion 04/22/2024 Upper respiratory tract infection 04/22/2024 Normal 03/07/2024 Family history of trisomy 18 03/15/2022 Overview: FOB's sister History of pericarditis 03/15/2022 Overview: Pre-, established with cardiology. Encouraged to schedule f/u with them during . Anxiety 03/14/2022 Obsessive-compulsive disorder 08/10/2021 Generalized anxiety disorder 03/25/2019 Estimated Date of Delivery Comme nts Yes 10/12/2024 Based on last me nstrual period of 01/06/2024 documented as of this encounter (statuses as of 07/25/2024) Resolved Problems Problem Noted Date Diagnosed Date Resolved Date Mastitis, 06/01/2023 024 COVID-19 affecting in first trimester 04/14/2022 11/07/2022 Overview: 12 weeks Rubella non-immune status, antepartum 03/16/2022 11/07/2022 Supervision of normal first 03/15/2022 11/07/2022 Anxiety during 03/15/2022 Overview: Has therapist, no meds at [facility], managing well History of pericarditis 07/24/201912/20 documented as of this encounter (statuses as of 07/25/2024) Immunizations Name Administration Dates Next Due COVID-19 mRNA, LNP-s, No Pre serve, 2-Dose Series (DivX) 11/03/2021,03/16/2021,02/23/2021 Seasonal Influenza Virus Vac cine, Unspecified Formulation 09/27/2019 Seasonal Influenza, PF, 6 M & above, IM , (FluLaval or Fluzone) 09/04/2023,08/22/2022,08/03/2021,2019 TDAP (age 10 and older)(Boostrix) 09/06/2022, TDAP, Age 7 and older, IM (Adacel) 07/25/2024 documented as of this encounter Social History Tobacco Use Types Packs/Day Years Used Date Smoking Tobacco: Never Smokeless Tobacco: Never Alcohol Use Standard Drinks/Week Comments Not Currently 0 (1 standard drink = 0.6 oz pure alcohol) on the weekends, some wine 1-2 glasses Hunger Vital Sign Answer Date Recorded Within the past 12 months, y ou worried that your food would run out before you got the money to buy more. Never true 09/06/20 22 Within the past 12 months, t he food you bought just didn't last and you didn't have money to get more. Never true 09/06/2022 Dunbar Depression Scale Answer Date Recorded Dunbar Depression Scale Total 2 03/07/2024 The thought of harming myself has occurred to me . Never 03/07/2024 Utilities Answer Date Recorded Do you have trouble paying y our heating, water, or electric bill? (Adult - for ages 18 years and over) Not on file 05/06/2024 Is your family able to pay t he heat, water, or electric bill? (Household - for ages 0-17 years) Not on file 05/06/2024 Does your family have access to good internet? (Household - for ages 0-17 years) Not on file 05/06/2024 Social Connections Answer Date Recorded How often do you feel lonely or isolated from those around you? (Adult - for ages 18 years and over) Not on file 05/06/2024 Estimated Date of Delivery Comme nts Yes 10/12/2024 Based on last me nstrual period of 01/06/2024 Sex and Gender Information Value Date Recorded Sex Assigned at Not on file Gender Identity Not on file Sexual Orientation Not on file Job Start Date Occupation Industry Not on file Not on file Not on file documented as of this encounter Last Filed Vital Signs Vital Sign Reading Time Taken Comments Blood Pressure 96/68 07/25/2024 9:17 AM EDT Pulse - - Temperature - - Respiratory Rate - - Oxygen Saturation - - Inhaled Oxygen Concentration - - Weight 62.6 kg (138 lb) 07/25/2024 9:17 AM EDT Height 170.2 cm (5' 7") 07/25/2024 9:17 AM EDT Body Mass Index 21.61 07/25/2024 9:17 AM EDT documented in this encounter Progress Notes * Diana Jara PA-C - 07/25/2024 9:37 AM EDT 28w5d Completing third trimester labs today. Counseled on Tdap, accepts and given. Had called in for epigastric pain that she called in the other day for. [place] more heartburn. Took TUMS, improved. Reviewed Pepcid as well. S<D, growth ordered. Denies VB, LOF, contractions. Baby is active. Defers flu vaccine at this time. Has travel planned to [place] around 34 weeks. Discussed travel in 3rd trimester, avoiding near term if able. DVT precautions. Can given OB records if desires. RTC in 2 weeks Diana Jara PA-C documented in this encounter Nursing Notes * Nivia Power LPN - 07/25/2024 9:25 AM EDT 28w5d Completing 28wk labs today Would like tdap today documented in this encounter Plan of Treatment Upcoming Encounters Date Type Department Care Team (Late st Contact Info) Description 07/25/2024 11:15 AM EDT Imaging Radiology [facility] [address] [place] [phone] 08/05/2024 10:00 AM EDT Office Visit Gynecology/Obstetrics [facility] [address] [place] [address] Claudine Winn CRNP [address] [place] [phone] 08/22/2024 9:15 AM EDT Office Visit Gynecology/Obstetrics [facility] [address] [place] [address] Diana Jara PA-C [address] [place] [phone] Scheduled Orders Name Type Priority Associated Diagnoses Orde r Schedule US PREG FOLLOW-UP EACH FETUS Medical Imaging Routine Normal in third trimester Uterine size date discrepancy Expected: 07/25/2024, Expires: 08/24/2025 Health Maintenance Due Date Last Done Comments Pneumococcal Vaccine: Pediatrics (0 to 5 Years) and At-Risk Patients (6 to 64 Years) (1 of 2 - PCV) 1996 Hepatitis B Vaccine (1 of 3 - 19+ 3-dose series) 2009 Depression Screening 10/12/2021 10/12/2020 COVID-19 Vaccine (4 - 2022- season) 2024 11/03/2021, 03/16/2021, 02/23/2021 Influenza Vaccine (FLU shot) (#1) 2024 09/04/2023, 08/22/2022, 08/03/2021, Additional history exists Pap Smear 11/28/2025 11/28/2022, 12/20, 01/02/2020, Additional history exists Cervical Cancer Screening 11/28/2027 HPV/Co-Test 11/28/2027 11/28/2022 DTap/Tdap Vaccines (4 - Td or Tdap) 07/25/2034 07/25/2024, 09/06/2022, 01/07/2021 HPV (Gardasil) Vaccine Aged Out No lo nger eligible based on patient's age to complete this topic MENINGOCOCCAL (MENACTRA/MENVEO) Aged Out No longer eligible based on patient's age to complete this topic documented as of this encounter Medical Devices Not on filedocumented as of this encounter Visit Diagnoses Diagnosis Normal in third trimester- Primary Family history of trisomy 18 Family history of genetic disease carrier Uterine size date discrepancy Uterine size date discrepancy, antepartum condition or complication documented in this encounter Care Teams Apiculture Teacher Relationship Specialty Start Date End Date Jimena Neville DO [address] [facility] [place] [address] PCP - General Family Medicine 08/04/19 documented as of this encounter
--- OUTSIDE RECORDS SUMMARY | 2024-10-02 13:35 | External Medical Summary | Summary of Care ---
Author Name Unknown Organization [facility] Address [address] [place] [address] Phone [phone] Care Team Providers Care Clinic Physician Name Role Phone Jamin Jimena Marylu TRAN Primary Care Provider [phone] Reason for Visit * Reason Comments Return Visit Encounter Details Date Type Department Care Team ([facility] Contact Info) Description 09/24/2024 9:45 AM EST Office Visit Gynecology/Obstetric s IrahetaKodikylah Whitaker [address] [facility] [place] [address] Claudine Winn CRNP [address] [place] [place] [address] Normal in third trimester*; Family history of trisomy 18 Allergies Active Allergy Reactions Criticality Noted Date Comments Sulfa Antibiotics Hives Low 07/24/2019 documented as of this encounter (statuses as of 09/24/2024) Medications Medication Sig Dispensed Refills Start Date End Date Status Tums E-X 750 750 MG Oral Tablet Chewable (calcium CARBonate) Take 1 Tablet by mouth in the morning. Active 28-0.8 MG Oral Tablet Take by mouth. Active documented as of this encounter (statuses as of 09/24/2024) Active Problems Problem Noted Date Diagnosed Date Sinus drainage 04/22/2024 15 weeks gestation of 04/22/2024 Sinus congestion 04/22/2024 Upper respiratory tract infection 04/22/2024 Normal 03/07/2024 Family history of trisomy 18 03/15/2022 Overview: FOJose C's sister History of pericarditis 03/15/2022 Overview: Pre-, established with cardiology. Encouraged to schedule f/u with them during . Anxiety 03/14/2022 Obsessive-compulsive disorder 08/10/2021 Generalized anxiety disorder 03/25/2019 Estimated Date of Delivery Comme nts Yes 10/12/2024 Based on last me nstrual period of 01/06/2024 documented as of this encounter (statuses as of 09/24/2024) Resolved Problems Problem Noted Date Diagnosed Date Resolved Date Mastitis, 06/01/2023 024 COVID-19 affecting in first trimester 04/14/2022 11/07/2022 Overview: 12 weeks Rubella non-immune status, antepartum 03/16/2022 11/07/2022 Supervision of normal first 03/15/2022 11/07/2022 Anxiety during 03/15/2022 Overview: Has therapist, no meds at [facility], managing well History of pericarditis 07/24/201912/20 documented as of this encounter (statuses as of 09/24/2024) Immunizations Name Administration Dates Next Due COVID-19 mRNA, LNP-s, No Pre serve, 2-Dose Series (Proximus) 11/03/2021,03/16/2021,02/23/2021 RSV Vac., Bivalent, Perfusio n F, Pf,0.5 Ml (Abrysvo) 09/05/2024 Seasonal Influenza Virus Vac cine, Unspecified Formulation 09/27/2019 Seasonal Influenza, PF, 6 M & above, IM , (FluLaval or Fluzone) 09/04/2023,08/22/2022,08/03/2021,2019 Seasonal Influenza, Trivalen t, (IIV3), PF, (Fluzone) 09/05/2024 TDAP (age 10 and older)(Boostrix) 09/06/2022, TDAP, [...] money to get more. Never true 09/06/2022 [place] Depression Scale Answer Date Recorded [place] Depression Scale Total 2 03/07/2024 The thought [...] Sign Reading Time Taken Comments Blood Pressure 110/64 09/24/2024 9:44 AM EST Pulse - - Temperature - - Respiratory Rate - - Oxygen Saturation - - Inhaled Oxygen Concentration - - Weight 66.5 kg (146 lb 9.6 oz) 09/24/2024 9:44 A M EST Height - - Body Mass Index 22.96 09/17/2024 9:05 AM EDT documented in this encounter Progress Notes * Claudine Winn CRNP - 09/24/2024 9:59 AM EST 37w3d Complaints: none Feeling well overall. Good FM. No contractions, bleeding, or LOF. Reviewed labor instructions, to call before going to hospital. LIVIA Barrientos * Purvi Barboza CMA - 09/24/2024 9:44 AM EST 37w3d Denies any concerns documented in this encounter Plan of Treatment Upcoming Encounters Date Type Department Care Team (Late st Contact Info) Description 10/03/2024 9:00 AM EST Office Visit Gynecology/Obstetrics [facility] [address] [place] [address] Diana Jara PA-C [address] [place] [address] 10/10/2024 9:15 AM EST Office Visit Gynecology/Obstetrics [facility] [address] [place] [address] Diana Jara PA-C [address] [place] [phone] Health Maintenance Due Date Last Done Comments Pneumococcal Vaccine: Pediatrics (0 to 5 Years) and At-Risk Patients (6 to 64 Years) (1 of 2 - PCV) 1996 Hepatitis B Vaccine (1 of 3 - 19+ 3-dose series) 2009 Depression Screening 10/12/2021 10/12/2020 COVID-19 Vaccine (2023- season) 2024 11/03/2021, 03/16/2021, 02/23/2021 Pap Smear 11/28/2025 11/28/2022, 12/20, 01/02/2020, Additional history exists Cervical Cancer Screening 11/28/2027 HPV/Co-Test 11/28/2027 11/28/2022 DTap/Tdap Vaccines (4 - Td or Tdap) 07/25/2034 07/25/2024, 09/06/2022, 01/07/2021 Influenza Vaccine (FLU shot) Completed , 09/04/2023, 08/22/2022, Additional history exists HPV (Gardasil) Vaccine Aged Out No lo [...] 18 Family history of genetic disease carrier documented in this encounter Care Teams Clinic Physician Relationship Specialty Start Date End Date Jimena Neville DO [address] [place] [address] PCP - General Family Medicine 08/04/19 documented as of this encounter
--- OUTSIDE RECORDS SUMMARY | 2024-10-02 13:35 | External Medical Summary ---
Author Name Unknown Address Unknown Organization K01:[facility] [address] [place] [address] Laboratory Report Ordering Provider Test Date Status ANGELICA CHRISTENSEN 09/17/2024 09:42:12 Final Observation Date Value Abnormality Reference (Units ) Status Streptococcus agalactiae DNA [Presence] in Specimen by SUHA with probe detection 09/17/2024 09:42:12 Negative Negative Final No Group B Streptococcus det ected by culture-enhanced PCR (amplified probe). [facility]BS GBS[facility] - [facility] 09/17/2024 09:42:12 0.0 Final GBS SPCCT - [facility] 09/17/2024 09:42:12 31.7 Final Performing Location [facility] [place] - [facility] [address] [place] [address]
--- OUTSIDE RECORDS SUMMARY | 2024-10-02 13:35 | External Medical Summary | Summary of Care ---
Author Name Unknown Organization [facility] Address [address] [place] [address] Phone [phone] Care Team Providers Care Graduate Assistant Name Role Phone Jamin Jimena Marylu TRAN Primary Care Provider [phone] Reason for Visit * Reason Comments Return Visit Encounter Details Date Type Department Care Team ([facility] Contact Info) Description 09/05/2024 9:30 AM EDT Office Visit Gynecology/Obstetric s Ankurkylah Whitaker [address] [place] [address] Hneri Narayanan MD [address] [place] [address] Family history of trisomy 18*; Normal in third trimester Allergies Active Allergy Reactions Criticality Noted Date Comments Sulfa Antibiotics Hives Low 07/24/2019 documented as of this encounter (statuses as of 09/05/2024) Medications Medication Sig Dispensed Refills Start Date End Date Status Tums E-X 750 750 MG Oral Tablet Chewable (calcium CARBonate) Take 1 Tablet by mouth in the morning. Active 28-0.8 MG Oral Tablet Take by mouth. Active documented as of this encounter (statuses as of 09/05/2024) Active Problems Problem Noted Date Diagnosed Date [...] as of this encounter (statuses as of 09/05/2024) Resolved Problems Problem Noted Date Diagnosed Date Resolved Date Mastitis, 06/01/2023 024 COVID-19 affecting in first trimester 04/14/2022 11/07/2022 Overview: 12 weeks Rubella non-immune status, antepartum 03/16/2022 11/07/2022 Supervision of normal first 03/15/2022 11/07/2022 Anxiety during 03/15/2022 Overview: Has therapist, no meds at [facility], managing well History of pericarditis 07/24/201912/20 documented as of this encounter (statuses as of 09/05/2024) Immunizations Name Administration Dates Next Due COVID-19 mRNA, LNP-s, No Pre serve, 2-Dose Series ([employer]) 11/03/2021,03/16/2021,02/23/2021 RSV Vac., Bivalent, Perfusio n F, [...] money to get more. Never true 09/06/2022 [place] Depression Scale Answer Date Recorded [place] Depression Scale Total 2 03/07/2024 The thought [...] Sign Reading Time Taken Comments Blood Pressure 100/60 09/05/2024 9:35 AM EDT Pulse - - Temperature - - Respiratory Rate - - Oxygen Saturation - - Inhaled Oxygen Concentration - - Weight 64.9 kg (143 lb) 09/05/2024 9:35 AM EDT Height 170.2 cm (5' 7") 09/05/2024 9:35 AM EDT Body Mass Index 22.4 09/05/2024 9:35 AM EDT documented in this encounter Progress Notes * Henri Narayanan MD - 09/05/2024 9:43 AM EDT Pt doing well No complaints LIZBETH last visit was >10 RTC 2 weeks * Marisol Sampson LPN - 09/05/2024 9:35 AM EDT 34w5d Would like rsv and flu documented in this encounter Nursing Notes * Marisol Sampson LPN - 09/05/2024 10:16 AM EDT Patient here for RSV injection. Patient doing well no complaints. Injection given IM as ordered. Patient tolerated well. Patient to follow up as directed. Patient instructed to call if any complications. Patient verbalized understanding of instructions given and her follow up appt for 2 weeks Injection site: Right Deltoid Medication Source: Dispensed stock medication Patient here for flu injection. Patient doing well no complaints. Injection given IM as ordered. Patient tolerated well. Patient to follow up as directed. Patient instructed to call if any complications. Patient verbalized understanding of instructions given and her follow up appt for 2 weeks Injection site: Left Deltoid Medication Source: Dispensed stock medication documented in this encounter Plan of Treatment Upcoming Encounters Date Type Department Care Team (Late st Contact Info) Description 09/17/2024 9:00 AM EDT Office Visit Gynecology/Obstetrics Nicolette Whitaker [address] [place] [address] Diana Jara PA-C [address] [place] [address] 09/24/2024 9:45 AM EST Office Visit Gynecology/Obstetrics Nicolette Whitaker [address] [place] [address] Claudine Winn CRNP [address] [place] [address] 10/03/2024 9:00 AM EST Office Visit Gynecology/Obstetrics [facility] [address] [place] [address] Diana Jara PA-C [address] [place] [address] 10/10/2024 9:15 AM EST Office Visit Gynecology/Obstetrics [facility] [address] [place] [address] Diana Jara PA-C [address] [place] [address] Health Maintenance Due Date Last Done Comments Pneumococcal Vaccine: Pediatrics (0 to 5 Years) and At-Risk Patients (6 to 64 Years) (1 of 2 - PCV) 1996 Hepatitis B Vaccine (1 of 3 - 19+ 3-dose series) 2009 Depression Screening 10/12/2021 10/12/2020 COVID-19 Vaccine ( - 2023- season) 2024 11/03/2021, 03/16/2021, 02/23/2021 Pap Smear [...] as of this encounter Visit Diagnoses Diagnosis Family history of trisomy 18- Primary Family history of genetic disease carrier Normal in third trimester documented in this encounter Care Teams Graduate Assistant Relationship Specialty Start Date End Date Jimena Neville DO [address] [place] [address] PCP - General Family Medicine 08/04/19 documented as of this encounter
--- OUTSIDE RECORDS SUMMARY | 2024-10-02 13:35 | External Medical Summary ---
Author Name Unknown Address Unknown Organization [id number]:LABORATORY [facility] - [address] [place] [address] Laboratory Report Ordering Provider Test Date Status ANGELICA CHRISTENSEN 07/25/2024 10:16:48 Final Observation Date Value Abnormality Reference (Units ) Status Treponema pallidum Ab [Presence] in Serum by Immunoassay 07/25/2024 10:16:48 Nonreactive Nonreactive Final No serologic evidence of syp hilis. No additional testing clinicially indicated at this time. Consider repeat testing in 2-4 weeks if acute or primary syphilis is suspected. Performing Location LAB[facility]ATORY [facility] - [address] [place] [address]
--- OUTSIDE RECORDS SUMMARY | 2024-10-02 13:35 | External Medical Summary ---
Author Name Unknown Address Unknown Organization [id number]:LABORATORY [facility] [place] - [address] [place] [address] Laboratory Report Ordering Provider Test Date Status SALLY DUNLAP 07/25/2024 10:16:48 Final Observation Date Value Abnormality Reference (Units ) Status MYCODE SPECIMEN-SST 07/25/2024 10:16:48 Freezing of extracted DNA, whole blood and/or serum. Final Performing Location LAB[facility]ATORY [facility] [place] - [address] [place] [address]
--- OUTSIDE RECORDS SUMMARY | 2024-10-02 13:35 | External Medical Summary | Summary of Care ---
Author Name Unknown Organization [facility] Address [address] [facility] [address] Phone [phone] Care Team Providers Care Estate Administrator Name Role Phone Jamin Jimena Marylu TRAN Primary Care Provider [phone] Reason for Visit * Reason Comments Return Visit Encounter Details Date Type Department Care Team ([facility] Contact Info) Description 09/17/2024 9:00 AM EDT Office Visit Gynecology/Obstetric s Nicolette Whitaker [address] [place] [address] Diana Jara PA-C [address] [place] [address] Normal in third trimester*; Family history of trisomy 18 Allergies Active Allergy Reactions Criticality Noted Date Comments Sulfa Antibiotics Hives Low 07/24/2019 documented as of this encounter (statuses as of 09/17/2024) Medications Medication Sig Dispensed Refills Start Date End Date Status Tums E-X 750 750 MG Oral Tablet Chewable (calcium CARBonate) Take 1 Tablet by mouth in the morning. Active 28-0.8 MG Oral Tablet Take by mouth. Active documented as of this encounter (statuses as of 09/17/2024) Active Problems Problem Noted Date Diagnosed Date [...] as of this encounter (statuses as of 09/17/2024) Resolved Problems Problem Noted Date Diagnosed Date Resolved Date Mastitis, 06/01/2023 024 COVID-19 affecting in first trimester 04/14/2022 11/07/2022 Overview: 12 weeks Rubella non-immune status, antepartum 03/16/2022 11/07/2022 Supervision of normal first 03/15/2022 11/07/2022 Anxiety during 03/15/2022 Overview: Has therapist, no meds at [facility], managing well History of pericarditis 07/24/201912/20 documented as of this encounter (statuses as of 09/17/2024) Immunizations Name Administration Dates Next Due COVID-19 mRNA, LNP-s, No Pre serve, 2-Dose Series ([employer]) 11/03/2021,03/16/2021,02/23/2021 RSV Vac., Bivalent, Perfusio n F, [...] money to get more. Never true 09/06/2022 [place] Depression Scale Answer Date Recorded [place] Depression Scale Total 2 03/07/2024 The thought [...] Sign Reading Time Taken Comments Blood Pressure 108/62 09/17/2024 9:05 AM EDT Pulse - - Temperature - - Respiratory Rate - - Oxygen Saturation - - Inhaled Oxygen Concentration - - Weight 65.3 kg (144 lb) 09/17/2024 9:05 AM EDT Height 170.2 cm (5' 7") 09/17/2024 9:05 AM EDT Body Mass Index 22.55 09/17/2024 9:05 AM EDT documented in this encounter Progress Notes * Diana Jara PA-C - 09/17/2024 9:19 AM EDT 36w3d No complaints. Denies VB, LOF, contractions. Baby is active. Due for GBS, collected. Not positive in first . RTC in 1 week Diana Jara PA-C documented in this encounter Nursing Notes * Nivia Power LPN - 09/17/2024 9:05 AM EDT 36w3d GBS today documented in this encounter Plan of Treatment Upcoming Encounters Date Type Department Care Team (Late st Contact Info) Description 09/24/2024 9:45 AM EST Office Visit Gynecology/Obstetrics [facility] [address] [place] [address] Claudine Winn CRNP [address] [place] [address] 10/03/2024 9:00 AM EST Office Visit Gynecology/Obstetrics [facility] [address] [place] [address] Diana Jara PA-C [address] [place] [address] 10/10/2024 9:15 AM EST Office Visit Gynecology/Obstetrics [facility] [address] [place] [address] Diana Jara PA-C [address] [place] [address] Scheduled Orders Name Type Priority Associated Diagnoses Orde r Schedule GROUP B STREP CULTURE/PCR Lab Routine Normal in third trimester Ordered: 09/17/2024 Health Maintenance Due Date Last Done Comments Pneumococcal Vaccine: Pediatrics (0 to 5 Years) and At-Risk Patients (6 to 64 Years) (1 of 2 - PCV) 1996 Hepatitis B Vaccine (1 of 3 - 19+ 3-dose series) 2009 Depression Screening 10/12/2021 10/12/2020 COVID-19 Vaccine (4 - 2023- season) 2024 11/03/2021, 03/16/2021, 02/23/2021 [...] carrier documented in this encounter Care Teams Estate Administrator Relationship Specialty Start Date End Date Jimena Neville DO [address] [place] [address] PCP - General Family Medicine 08/04/19 documented as of this encounter
--- OUTSIDE RECORDS SUMMARY | 2024-10-02 13:35 | External Medical Summary | Summary of Care ---
Author Name Unknown Organization [facility] Address [address] [facility] [place] [address] Phone [phone] Care Team Providers Care Meal Packer Name Role Phone Jimena Neville DO Primary Care Provider [phone] Encounter Details Date Type Department Care Team ([facility] Contact Info) Description 07/25/2024 [facility] [address] [place] [address] Diana Jara PA-C [address] [place] [address] Allergies Active Allergy Reactions Criticality Noted Date [...] 03/15/2022 Overview: Has therapist, no meds at [facility], managing well History of pericarditis 07/24/201912/20 documented as of this encounter (statuses as of 07/25/2024) Immunizations Name Administration Dates Next Due COVID-19 mRNA, LNP-s, No Pre serve, 2-Dose Series ([employer]) 11/03/2021,03/16/2021,02/23/2021 Seasonal Influenza Virus Vac cine, Unspecified [...] money to get more. Never true 09/06/2022 [place] Depression Scale Answer Date Recorded [place] Depression Scale Total 2 03/07/2024 The thought [...] on file documented as of this encounter Miscellaneous Notes * Telephone Encounter - Isabel Lowry RN - 07/25/2024 3:47 PM EDT Spoke with pt. She is aware. Denies any ROM. She will push her fluids and call with any concerns. She will plan to repeat her US in 4 weeks and schedule at her next visit. * Telephone Encounter - Diana Jara PA-C - 07/25/2024 2:28 PM EDT Please call patient and let her know that ultrasound completed today showed normal growth of baby. Baby was 39%ile. Her one measure of fluid levels was low normal. However, her other measure was normal. She was not concerned for LOF/ROM with appointment today. Please confirm no concerns of leaking. Typically with these findings, would have her push fluids making sure staying hydrated up to 120 ounces a day and repeat ultrasound in 4 weeks as typically improves with expectant management. Diana Jara PA-C documented in this encounter Plan of Treatment Upcoming Encounters Date Type Department Care Team (Late st Contact Info) Description 08/05/2024 10:00 AM EDT Office Visit Gynecology/Obstetrics [facility] [address] [place] [address] Claudine Winn CRNP [address] [place] [address] 08/22/2024 9:15 AM EDT Office Visit Gynecology/Obstetrics [facility] [address] [place] [address] Diana Jara PA-C [address] [place] [address] Scheduled Orders Name Type Priority Associated Diagnoses Orde r Schedule US PREG LIMITED 1 OR MORE FETUSES Medical Imaging Routine Normal in third trimester LIZBETH (amniotic fluid index) borderline low Expected: 08/24/2024, Expires: 08/24/2025 Health Maintenance Due Date Last Done Comments Pneumococcal Vaccine: Pediatrics (0 to 5 Years) and At-Risk Patients (6 to 64 Years) (1 of 2 - PCV) 1996 Hepatitis B Vaccine (1 of 3 - 19+ 3-dose series) 2009 Depression Screening 10/12/2021 10/12/2020 COVID-19 Vaccine (2022- season) 2024 11/03/2021, 03/16/2021, 02/23/2021 Influenza Vaccine [...] Diagnoses Diagnosis Normal in third trimester- Primary LIZBETH (amniotic fluid index) borderline low Nonspecific abnormal finding in amniotic fluid documented in this encounter Care Teams Meal Packer Relationship Specialty Start Date End Date Jimena Neville DO [address] [place] [address] PCP - General Family Medicine 08/04/19 documented as of this encounter
--- OUTSIDE RECORDS SUMMARY | 2024-10-02 13:35 | External Medical Summary ---
Author Name Unknown Address Unknown Organization K01:[facility]ATORY [facility] - [address] [place] [address] Laboratory Report Ordering Provider Test Date Status ANGELICA CHRISTENSEN 07/25/2024 10:16:48 Final Observation Date Value Abnormality Reference (Units ) Status WBC, Total 07/25/2024 10:16:48 8.08 4.00-10.8 0 (K/uL) Final RBC 07/25/2024 10:16:48 3.73 3.85-5.15 (M/uL) Final Hemoglobin 07/25/2024 10:16:48 12.6 12.0-15.3 (g/dL) Final Anemia reflex testing trigge rs on a HGB < 12.0 for Females and HGB < 13.0 for Males in accordance with the WHO Anemia Guidelines
Anemia reflex testing triggers on a HGB < 12.0 for Females and HGB < 13.0 for Males in accordance with the WHO Anemia Guidelines HCT 07/25/2024 10:16:48 37.8 36.0-45.2 (%) Final MCV 07/25/2024 10:16:48 101.3 81.5-97.5 (fL) Final MCH 07/25/2024 10:16:48 33.8 27.0-34.0 (pg) Final MCHC 07/25/2024 10:16:48 33.3 32.0-36.0 (g/dL) Final RDW 07/25/2024 10:16:48 12.1 11.5-15.5 (%) Final Platelets 07/25/2024 10:16:48 223 140-400 (K /uL) Final MPV 07/25/2024 10:16:48 9.6 6.6-11.1 ( fL) Final Nucleated erythrocytes/100 leukocytes [Ratio] in Blood by Automated count 07/25/2024 10:16:48 0 <=0 (/100 WBCs) Fi nal Performing Location [facility] - [address] [place] [address]
--- OUTSIDE RECORDS SUMMARY | 2024-10-02 13:35 | External Medical Summary | Summary of Care ---
Author Name Unknown Organization [facility] Address [address] [place] [address] Phone [phone] Care Team Providers Care Church Organist Name Role Phone Jamin Jimena Marylu TRAN Primary Care Provider [phone] Reason for Visit * Reason Comments Return Visit Encounter Details Date Type Department Care Team ([facility] Contact Info) Description 08/05/2024 10:00 AM EDT Office Visit Gynecology/Obstetric s Nicolette Whitaker [address] [place] [address] Claudine Winn CRNP [address] [facility] [place] [address] Normal in third trimester*; Family history of trisomy 18 Allergies Active Allergy Reactions Criticality Noted Date Comments Sulfa Antibiotics Hives Low 07/24/2019 documented as of this encounter (statuses as of 08/05/2024) Medications Medication Sig Dispensed Refills Start Date End Date Status Tums E-X 750 750 MG Oral Tablet Chewable (calcium CARBonate) Take 1 Tablet by mouth in the morning. Active 28-0.8 MG Oral Tablet Take by mouth. Active documented as of this encounter (statuses as of 08/05/2024) Active Problems Problem Noted Date Diagnosed Date [...] as of this encounter (statuses as of 08/05/2024) Resolved Problems Problem Noted Date Diagnosed Date Resolved Date Mastitis, 06/01/2023 024 COVID-19 affecting in first trimester 04/14/2022 11/07/2022 Overview: 12 weeks Rubella non-immune status, antepartum 03/16/2022 11/07/2022 Supervision of normal first 03/15/2022 11/07/2022 Anxiety during 03/15/2022 Overview: Has therapist, no meds at [facility], managing well History of pericarditis 07/24/201912/20 documented as of this encounter (statuses as of 08/05/2024) Immunizations Name Administration Dates Next Due COVID-19 mRNA, LNP-s, No Pre serve, 2-Dose Series ([employer]) 11/03/2021,03/16/2021,02/23/2021 Seasonal Influenza Virus Vac cine, Unspecified [...] money to get more. Never true 09/06/2022 [place] Depression Scale Answer Date Recorded [place] Depression Scale Total 2 03/07/2024 The thought [...] Sign Reading Time Taken Comments Blood Pressure 98/62 08/05/2024 10:04 AM EDT Pulse - - Temperature - - Respiratory Rate - - Oxygen Saturation - - Inhaled Oxygen Concentration - - Weight 63.5 kg (140 lb) 08/05/2024 10:04 AM EDT Height 170.2 cm (5' 7") 08/05/2024 10:04 AM EDT Body Mass Index 21.93 08/05/2024 10:04 AM EDT documented in this encounter Progress Notes * Claudine Winn CRNP - 08/05/2024 10:19 AM EDT 30w2d Has questions regarding ILZBETH from u/s 2 weeks ago. Done for size<dates. LIZBETH 8.3cm. she admits that she was likely dehydrated. Denies s/s of ROM. Plans recheck of fluid in 2 weeks. No other concerns. Baby is active. No contractions, bleeding, LOF. LIVIA Barrientos documented in this encounter Nursing Notes * Nivia Power LPN - 08/05/2024 10:04 AM EDT 30w2d F/u low fluid. documented in this encounter Plan of Treatment Upcoming Encounters Date Type Department Care Team (Late st Contact Info) Description 08/22/2024 9:15 AM EDT Office Visit Gynecology/Obstetrics [facility] [address] [place] [address] Diana Jara PA-C [address] [place] [address] 08/22/2024 9:30 AM EDT Imaging Radiology [facility] [address] [place] [address] 09/05/2024 9:15 AM EDT Office Visit Gynecology/Obstetrics [facility] [address] [place] [address] Diana Jara PA-C [address] [place] [address] Health Maintenance Due Date Last Done Comments Pneumococcal Vaccine: Pediatrics (0 to 5 Years) and At-Risk Patients (6 to 64 Years) (1 of 2 - PCV) 1996 Hepatitis B Vaccine (1 of 3 - 19+ 3-dose series) 2009 Depression Screening 10/12/2021 10/12/2020 COVID-19 Vaccine ( season) 2024 11/03/2021, 03/16/2021, 02/23/2021 Influenza Vaccine [...] carrier documented in this encounter Care Teams Church Organist Relationship Specialty Start Date End Date Jimena Neville DO [address] [place] [address] PCP - General Family Medicine 08/04/19 documented as of this encounter
--- OUTSIDE RECORDS SUMMARY | 2024-10-02 13:35 | External Medical Summary | Summary of Care ---
Author Name Unknown Organization [facility] Address [address] [facility] [address] Phone [phone] Care Team Providers Care Postal Service Sectional Center Manager Name Role Phone Jamin Jimena Marylu TRAN Primary Care Provider [phone] Reason for Visit * Reason Comments Return Visit Encounter Details Date Type Department Care Team ([facility] Contact Info) Description 09/17/2024 9:00 AM EDT Office Visit Gynecology/Obstetric s Nicolette Whitaker [address] [place] [address] Diana Jara PA-C [address] [place] [address] Normal in third trimester*; Family history of [...] 03/15/2022 Overview: Has therapist, no meds at [facility], managing well History of pericarditis 07/24/201912/20 documented as of this encounter (statuses as of 09/17/2024) Immunizations Name Administration Dates Next Due COVID-19 mRNA, LNP-s, No Pre serve, 2-Dose Series ([employer]) 11/03/2021,03/16/2021,02/23/2021 RSV Vac., Bivalent, Perfusio n F, [...] money to get more. Never true 09/06/2022 [place] Depression Scale Answer Date Recorded [place] Depression Scale Total 2 03/07/2024 The thought [...] 09/24/2024 9:45 AM EST Office Visit Gynecology/Obstetrics [facility] [address] [place] [address] Claudine Winn CRNP [address] [place] [address] 10/03/2024 9:00 AM EST Office Visit Gynecology/Obstetrics [facility] [address] [place] [address] Diana Jara PA-C [address] [place] [address] 10/10/2024 9:15 AM EST Office Visit Gynecology/Obstetrics [facility] [address] [place] [address] Diana Jara PA-C [address] [place] [address] Pending Results Name Type Priority Associated Diagnoses Date /Time GROUP B STREP CULTURE/PCR Lab Routine Normal in third trimester 09/17/2024 9:42 AM EDT Health Maintenance Due Date Last Done Comments [...] carrier documented in this encounter Care Teams Postal Service Sectional Center Manager Relationship Specialty Start Date End Date Jimena Neville DO [address] [place] [address] PCP - General Family Medicine 08/04/19 documented as of this encounter
--- OUTSIDE RECORDS SUMMARY | 2024-10-02 13:35 | External Medical Summary ---
Author Name Unknown Address Unknown Organization K01:[facility] - [address] [place] [address] Laboratory Report Ordering Provider Test Date Status ANGELICA CHRISTENSEN 07/25/2024 10:16:48 Final Observation Date Value Abnormality Reference (Units ) Status SYNC LEUKOCYTES IN BLOOD BY AUTOMATED COUNT 07/25/2024 10:16:48 8.08 4.00-10.80 (K/uL) Final Segs 07/25/2024 10:16:48 77.3 Above high normal 40.0-75.0 (%) Final Lymphs % 07/25/2024 10:16:48 18.3 18.0-42.0 (%) Final Monos 07/25/2024 10:16:48 3.2 1.0-11.0 (%) Final Eosinophils 07/25/2024 10:16:48 0.6 0.0-6.0 (%) Final Basos 07/25/2024 10:16:48 0.1 0.0-2.0 (%) Final Immature Granulocyte, Percent 07/25/2024 10:16:48 0.5 0.0-2.0 (%) Final Absolute Segs 07/25/2024 10:16:48 6.24 1.80-7.70 (K/uL) Final Lymphs, absolute 07/25/2024 10:16:48 1.48 1.00-4.80 (K/ul) Final Monos, Abs 07/25/2024 10:16:48 0.26 0.00-1.10 (K/uL) Final Eos, Abs 07/25/2024 10:16:48 0.05 0.00-0.70 (K/uL) Final Basos, Abs 07/25/2024 10:16:48 0.01 0.00-0.20 (K/uL) Final Immature Granulocytes, Number 07/25/2024 10:16:48 0.04 0.00-0.20 (K/uL) Final Performing Location [facility] - [address] [facility] [address]
--- OUTSIDE RECORDS SUMMARY | 2024-10-02 13:35 | External Medical Summary | Summary of Care ---
Author Name Unknown Organization [facility] Address [address] [place] [address] Phone [phone] Care Team Providers Care City Recorder Name Role Phone Jamin Jimena Marylu TRAN Primary Care Provider [phone] Reason for Visit * Reason Comments Outpatient Testing Encounter Details Date Type Department Care Team ([facility] st Contact Info) Description 07/25/2024 9:00 AM EDT Laboratory Laboratory, [facility] [address] [place] [address] [facility] [address] [place] [address] [employer] Research Other*[id number]; Normal in second trimester Allergies Active Allergy Reactions Criticality Noted [...] 03/15/2022 Overview: Has therapist, no meds at [facility], managing well History of pericarditis 07/24/201912/20 documented as of this encounter (statuses as of 07/25/2024) Immunizations Name Administration Dates Next Due COVID-19 mRNA, LNP-s, No Pre serve, 2-Dose Series ([place]) 11/03/2021,03/16/2021,02/23/2021 Seasonal Influenza Virus Vac cine, Unspecified [...] money to get more. Never true 09/06/2022 [place] Depression Scale Answer Date Recorded [place] Depression Scale Total 2 03/07/2024 The thought [...] on file documented as of this encounter Plan of Treatment Upcoming Encounters Date Type Department Care Team (Late st Contact Info) Description 07/25/2024 11:15 AM EDT Imaging Radiology [facility] [address] [place] [address] 08/05/2024 10:00 AM EDT Office Visit Gynecology/Obstetrics Nicolette Whitaker [address] [address] Claudine Winn CRNP [address] [place] [address] 08/22/2024 9:15 AM EDT Office Visit Gynecology/Obstetrics Nicolette Whitaker [address] [place] [address] Diana Jara PA-C [address] [place] [address] Pending Results Name Type Priority Associated Diagnoses Date /Time MYCODE SUBSEQUENT ADULT Lab Routine My[employer] Research Other*[id number] 07/25/2024 10:16 AM EDT 50-G GESTATIONAL GLUCOSE, 1 HOUR Lab Routine Normal in second trimester 07/25/2024 10:16 AM EDT CBC WITH WBC DIFFERENTIAL AND ANEMIA REFLEX WORKUP Lab Routine Normal in second trimester 07/25/2024 10:16 AM EDT SYPHILIS ANTIBODY SCREEN WITH REFLEX TO RPR Lab Routine Normal in second trimester 07/25/2024 10:16 AM EDT MYCODE SST1 Lab Routine [employer] Other*[id number] 07/25/2024 10:16 AM EDT MYCODE SST2 Lab Routine [employer] Other*[id number] 07/25/2024 10:16 AM EDT ANEMIA CBC Lab Routine Normal in second trimester 07/25/2024 10:16 AM EDT DIFFERENTIAL, AUTOMATED Lab Routine Normal in second trimester 07/25/2024 10:16 AM EDT ANEMIA REFLEX CHEMISTRY HOLD Lab Routine Normal in second trimester 07/25/2024 10:16 AM EDT SYPHILIS ANTIBODY SCREEN Lab Routine Normal in second trimester 07/25/2024 10:16 AM EDT Health Maintenance Due Date Last [...] as of this encounter Visit Diagnoses Diagnosis [employer] Other*[id number] Normal in second trimester documented in this encounter Care Teams City Recorder Relationship Specialty Start Date End Date Jimena Neville DO [address] [place] [address] PCP - General Family Medicine 08/04/19 documented as of this encounter
--- OUTSIDE RECORDS SUMMARY | 2024-10-02 13:35 | External Medical Summary ---
Author Name Unknown Address Unknown Organization K01:[facility] [place] [address] [place] [address] Laboratory Report Ordering Provider Test Date Status SALLY DUNLAP 07/25/2024 10:16:48 Final Observation Date Value Abnormality Reference (Units ) Status MYCODE SPECIMEN-SST 07/25/2024 10:16:48 Freezing of extracted DNA, whole blood and/or serum. Final Performing Location [facility] [place] [address] [place] [address]
--- OUTSIDE RECORDS SUMMARY | 2024-10-02 13:35 | External Medical Summary | Summary of Care ---
Author Name Unknown Organization [facility] Address [address] [place] [facility] [place] [place] [address] Phone [phone] Care Team Providers Care Raise Drill Operator Name Role Phone Jamin Jimena Marylu TRAN Primary Care Provider [phone] Reason for Visit * Reason Comments Return Visit Encounter Details Date Type Department Care Team ([facility] Contact Info) Description 08/22/2024 9:15 AM EDT Office Visit Gynecology/Obstetric s Nicolette Whitaker [address] [place] [address] Diana Jara PA-C [address] [place] [address] Normal in third trimester*; Family history of trisomy 18 Allergies Active Allergy Reactions Criticality Noted Date Comments Sulfa Antibiotics Hives Low 07/24/2019 documented as of this encounter (statuses as of 08/22/2024) Medications Medication Sig Dispensed Refills Start Date End Date Status Tums E-X 750 750 MG Oral Tablet Chewable (calcium CARBonate) Take 1 Tablet by mouth in the morning. Active 28-0.8 MG Oral Tablet Take by mouth. Active documented as of this encounter (statuses as of 08/22/2024) Active Problems Problem Noted Date Diagnosed Date [...] as of this encounter (statuses as of 08/22/2024) Resolved Problems Problem Noted Date Diagnosed Date Resolved Date Mastitis, 06/01/2023 024 COVID-19 affecting in first trimester 04/14/2022 11/07/2022 Overview: 12 weeks Rubella non-immune status, antepartum 03/16/2022 11/07/2022 Supervision of normal first 03/15/2022 11/07/2022 Anxiety during 03/15/2022 Overview: Has therapist, no meds at [facility], managing well History of pericarditis 07/24/201912/20 documented as of this encounter (statuses as of 08/22/2024) Immunizations Name Administration Dates Next Due COVID-19 mRNA, LNP-s, No Pre serve, 2-Dose Series ([employer]) 11/03/2021,03/16/2021,02/23/2021 Seasonal Influenza Virus Vac cine, Unspecified [...] money to get more. Never true 09/06/2022 [place] Depression Scale Answer Date Recorded [place] Depression Scale Total 2 03/07/2024 The thought [...] Sign Reading Time Taken Comments Blood Pressure 100/68 08/22/2024 9:24 AM EDT Pulse - - Temperature - - Respiratory Rate - - Oxygen Saturation - - Inhaled Oxygen Concentration - - Weight 64.1 kg (141 lb 6.4 oz) 08/22/2024 9:24 A M EDT Height - - Body Mass Index 22.15 08/05/2024 10:04 AM EDT documented in this encounter Progress Notes * Diana Jara PA-C - 08/22/2024 9:29 AM EDT 32w5d Doing well. Has follow up ultrasound for LIZBETH scheduled directly following this appointment. Has been trying to push fluids. Denies VB, LOF. Baby is active. Plans RSV/Flu vaccine next visit. Has trip to [place] planned, short flight -- 1 hour for wedding around 34 weeks. OB records given to her today. Discussed VTE precautions. RTC in 2 weeks Diana Jara PA-C * Purvi Barboza CMA - 08/22/2024 9:24 AM EDT 32w5d Denies any concerns documented in this encounter Plan of Treatment Upcoming Encounters Date Type Department Care Team (Late st Contact Info) Description 09/05/2024 9:15 AM EDT Office Visit Gynecology/Obstetrics [facility] [address] [place] [address] Diana Jara PA-C [address] [place] [address] Health Maintenance Due Date Last Done Comments Pneumococcal Vaccine: Pediatrics (0 to 5 Years) and At-Risk Patients (6 to 64 Years) (1 of 2 - PCV) 1996 Hepatitis B Vaccine (1 of 3 - 19+ 3-dose series) 2009 Depression Screening 10/12/2021 10/12/2020 COVID-19 Vaccine ( - season) 2024 11/03/2021, 03/16/2021, 02/23/2021 Influenza Vaccine [...] carrier documented in this encounter Care Teams Raise Drill Operator Relationship Specialty Start Date End Date Jimena Neville DO [address] [place] [address] PCP - General Family Medicine 08/04/19 documented as of this encounter
--- OUTSIDE RECORDS SUMMARY | 2024-10-02 13:36 | External Medical Summary | Summary of Care ---
Author Name Unknown Organization [facility] Address [address] [place] [address] Phone [phone] Care Team Providers Care News Operations Manager Name Role Phone Jamin Jimena Marylu TRAN Primary Care Provider [phone] Reason for Visit * Reason Comments Outpatient Testing Encounter Details Date Type Department Care Team ([facility] st Contact Info) Description 05/02/2024 11:10 AM EDT Laboratory Laboratory, [facility] [address] [place] [phone] [facility] [address] [place] [address] Arrived Allergies Active Allergy Reactions Criticality Noted Date Comments Sulfa Antibiotics Hives Low 07/24/2019 documented as of this encounter (statuses as of 05/02/2024) Medications Medication Sig Dispensed Refills Start Date End Date Status Tums E-X 750 750 MG Oral Tablet Chewable (calcium CARBonate) Take 1 Tablet by mouth in the morning. Active 28-0.8 MG Oral Tablet Take by mouth. Active documented as of this encounter (statuses as of 05/02/2024) Active Problems Problem Noted Date Diagnosed Date [...] as of this encounter (statuses as of 05/02/2024) Resolved Problems Problem Noted Date Diagnosed Date Resolved Date Mastitis, 06/01/2023 024 COVID-19 affecting in first trimester 04/14/2022 11/07/2022 Overview: 12 weeks Rubella non-immune status, antepartum 03/16/2022 11/07/2022 Supervision of normal first 03/15/2022 11/07/2022 Anxiety during 03/15/2022 Overview: Has therapist, no meds at [facility], managing well History of pericarditis 07/24/201912/20 documented as of this encounter (statuses as of 05/02/2024) Immunizations Name Administration Dates Next Due COVID-19 mRNA, LNP-s, No Pre serve, 2-Dose Series (Pfizer) 11/03/2021,03/16/2021,02/23/2021 Seasonal Influenza Virus Vac cine, Unspecified Formulation 09/27/2019 Seasonal Influenza, PF, 6 M & above, IM , (FluLaval or Fluzone) 09/04/2023,08/22/2022,08/03/2021,2019 TDAP (age 10 and older)(Boostrix) 09/06/2022, documented as of this encounter Social History [...] money to get more. Never true 09/06/2022 [place] Depression Scale Answer Date Recorded [place] Depression Scale Total 2 03/07/2024 The thought of harming myself has occurred to me . Never 03/07/2024 Estimated Date of Delivery Comme nts Yes [...] Care Team (Late st Contact Info) Description 05/30/2024 9:30 AM EDT Imaging Radiology [facility] [address] [address] [address] 05/30/2024 11:30 AM EDT Office Visit Gynecology/Obstetrics [facility] [address] [address] [address] Diana Jara PA-C [address] [address] 06/16/2024 12:40 PM EDT Office Visit Otolaryngology, Anupama Nickerson [address] [address] Madhav Zhong PA-C [address] [address] Health Maintenance Due Date Last Done Comments Hepatitis B (1 of 3 - 19+ 3-dose series) 2009 Depression Screening 10/12/2021 10/12/2020 COVID-19 Vaccine (2022- season) 2023 11/03/2021, 03/16/2021, 02/23/2021 Pap Smear 11/28/2025 11/28/2022, 12/20, 01/02/2020, Additional history exists Cervical Cancer Screening 11/28/2027 HPV/Co-Test 11/28/2027 11/28/2022 DTaP,Tdap,and Td Vaccines (3 - Td or Tdap) 09/06/2032 09/06/2022, 01/07/2021 Influenza Vaccine (FLU shot) Completed , 08/22/2022, 08/03/2021, Additional history exists GARDASIL-HPV IMMUNIZATION SERIES Aged Out No longer eligible based on patient's age to complete this topic MENINGOCOCCAL (MENACTRA/MENVEO) Aged Out No longer eligible based on patient's age to complete this topic Pneumococcal Vaccine: Pediatrics (0 to 5 Years) and At-Risk Patients (6 to 64 Years) Aged Out No longer eligible based on patient's age to complete this topic documented as of this encounter Medical Devices Not on filedocumented as of this encounter Care Teams News Operations Manager Relationship Specialty Start Date End Date Jimena Neville DO [address] [place] [address] PCP - General Family Medicine 08/04/19 documented as of this encounter
--- OUTSIDE RECORDS SUMMARY | 2024-10-02 13:36 | External Medical Summary | Summary of Care ---
Author Name Unknown Organization [facility] Address [address] [place] [address] Phone [phone] Care Team Providers Care Local Company Tanker Driver Name Role Phone Jimena Neville DO Primary Care Provider [phone] Reason for Visit * Reason Onset Date Comments Advice 07/19/2024 Encounter Details Date Type Department Care Team ([facility] Contact Info) Description 07/19/2024 Telephone [facility] Obstetrics [address] [place] [address] Og Carrera DO [address] [place] [address] Advice Allergies Active Allergy Reactions Criticality Noted Date Comments Sulfa Antibiotics Hives Low 07/24/2019 documented as of this encounter (statuses as of 07/19/2024) Medications Medication Sig Dispensed Refills Start Date End Date Status Tums E-X 750 750 MG Oral Tablet Chewable (calcium CARBonate) Take 1 Tablet by mouth in the morning. Active 28-0.8 MG Oral Tablet Take by mouth. Active documented as of this encounter (statuses as of 07/19/2024) Active Problems Problem Noted Date Diagnosed Date [...] as of this encounter (statuses as of 07/19/2024) Resolved Problems Problem Noted Date Diagnosed Date Resolved Date Mastitis, 06/01/2023 024 COVID-19 affecting in first trimester 04/14/2022 11/07/2022 Overview: 12 weeks Rubella non-immune status, antepartum 03/16/2022 11/07/2022 Supervision of normal first 03/15/2022 11/07/2022 Anxiety during 03/15/2022 Overview: Has therapist, no meds at [facility], managing well History of pericarditis 07/24/201912/20 documented as of this encounter (statuses as of 07/19/2024) Immunizations Name Administration Dates Next Due COVID-19 mRNA, LNP-s, No Pre serve, 2-Dose Series ([employer]) 11/03/2021,03/16/2021,02/23/2021 Seasonal Influenza Virus Vac cine, Unspecified [...] money to get more. Never true 09/06/2022 [place] Depression Scale Answer Date Recorded [place] Depression Scale Total 2 03/07/2024 The thought [...] encounter Miscellaneous Notes * Telephone Encounter - Og Carrera DO - 07/19/2024 12:40 PM EDT 07/19/2024 12:40 PM Marilou Montalvo is 33 year old at 27w6d. Patient reporting new onset epigastric pain since , she reports that she has not noticed any difficult or exacerbation postprandially. Denies chest pain or SOB. Reports that she has been having some acid reflux and took Tums yesterday with mildrelief. Denies nausea or vomiting. Advised patient to take Tums, try hydration. Denies regular contractions, LOF, VB, reports good movement. If persistent pain with new onset nausea or vomiting, advised patient to present to nearest ED. Og Carrera DO documented in this encounter Plan of Treatment Upcoming Encounters Date Type Department Care Team (Late st Contact Info) Description 07/25/2024 9:00 AM EDT Office Visit Gynecology/Obstetrics Nicolette Whitaker [address] [place] [address] Diana Jara PA-C [address] [place] [address] 07/25/2024 9:00 AM EDT [facility] [address] [place] [phone] [facility] [address] [place] [address] Health Maintenance Due Date Last Done Comments Pneumococcal Vaccine: Pediatrics (0 to 5 Years) and At-Risk Patients (6 to 64 Years) (1 of 2 - PCV) 1996 Hepatitis B Vaccine (1 of 3 - 19+ 3-dose series) 2009 Depression Screening 10/12/2021 10/12/2020 COVID-19 Vaccine (2022- season) 2023 11/03/2021, 03/16/2021, 02/23/2021 Influenza Vaccine (FLU shot) (#1) 2024 09/04/2023, 08/22/2022, 08/03/2021, Additional history exists Pap Smear 11/28/2025 11/28/2022, 12/20, 01/02/2020, Additional history exists Cervical Cancer Screening 11/28/2027 HPV/Co-Test 11/28/2027 11/28/2022 DTap/Tdap Vaccines (3 - Td or Tdap) 09/06/2032 09/06/2022, 01/07/2021 HPV (Gardasil) Vaccine Aged Out No lo nger eligible based on patient's age to complete this topic MENINGOCOCCAL (MENACTRA/MENVEO) Aged Out No longer eligible based on patient's age to complete this topic documented as of this encounter Medical Devices Not on filedocumented as of this encounter Care Teams Local Company Tanker Driver Relationship Specialty Start Date End Date Jimena Neville DO [address] [address] PCP - General Family Medicine 08/04/19 documented as of this encounter
--- OUTSIDE RECORDS SUMMARY | 2024-10-02 13:36 | External Medical Summary | Summary of Care ---
Author Name Unknown Organization [facility] Address [address] [facility] [address] Phone [phone] Care Team Providers Care Registration Manager Name Role Phone Jamin Jimena Marylu TRAN Primary Care Provider [phone] Reason for Visit * Reason Comments Return Visit Encounter Details Date Type Department Care Team ([facility] Contact Info) Description 06/30/2024 9:00 AM EDT Office Visit Gynecology/Obstetric s Nicolette Whitaker [address] [place] [address] Diana Jara PA-C [address] [place] [address] Normal in second trimester*; Family history of trisomy 18 Allergies Active Allergy Reactions Criticality Noted Date Comments Sulfa Antibiotics Hives Low 07/24/2019 documented as of this encounter (statuses as of 06/30/2024) Medications Medication Sig Dispensed Refills Start Date End Date Status Tums E-X 750 750 MG Oral Tablet Chewable (calcium CARBonate) Take 1 Tablet by mouth in the morning. Active 28-0.8 MG Oral Tablet Take by mouth. Active documented as of this encounter (statuses as of 06/30/2024) Active Problems Problem Noted Date Diagnosed Date [...] as of this encounter (statuses as of 06/30/2024) Resolved Problems Problem Noted Date Diagnosed Date Resolved Date Mastitis, 06/01/2023 024 COVID-19 affecting in first trimester 04/14/2022 11/07/2022 Overview: 12 weeks Rubella non-immune status, antepartum 03/16/2022 11/07/2022 Supervision of normal first 03/15/2022 11/07/2022 Anxiety during 03/15/2022 Overview: Has therapist, no meds at [facility], managing well History of pericarditis 07/24/201912/20 documented as of this encounter (statuses as of 06/30/2024) Immunizations Name Administration Dates Next Due COVID-19 mRNA, LNP-s, No Pre serve, 2-Dose Series ([place]) 11/03/2021,03/16/2021,02/23/2021 Seasonal Influenza Virus Vac cine, Unspecified [...] money to buy more. Never true 09/06/20 Within the past 12 months, t he food you bought just didn't last and you didn't have money to get more. Never true 09/06/2022 [place] Depression Scale Answer Date Recorded [place] Depression Scale Total 2 03/07/2024 The thought [...] Sign Reading Time Taken Comments Blood Pressure 88/52 06/30/2024 9:16 AM EDT Pulse - - Temperature - - Respiratory Rate - - Oxygen Saturation - - Inhaled Oxygen Concentration - - Weight 61.6 kg (135 lb 12.8 oz) 024 9:16 AM EDT Height - - Body Mass Index 21.27 05/30/2024 11:22 AM EDT documented in this encounter Progress Notes * Diana Jara PA-C - 06/30/2024 9:37 AM EDT 25w1d Called in 3-4 weeks ago for incident where she got lightheaded/dizzy. Denies syncope. Pt states wasreading 20 month old book in morning. Stood up and got lightheaded. Fell to hands/knees. Did not hit belly. Could hear son talking whole time. May have hit head. Denies h/a. Historically has low BP's. Has been increasing fluids/water. Has not happened again. Did not follow up with PCP. BP low againtoday. Recommended liberal fluid intake, Gatorade/Poweraid as needed. Slow changes in position. Follow up with PCP. ED if syncope. Reviewed third tri labs. RTC in 3 weeks. Diana Jara PA-C * Purvi Barboza MED ASSIST - 06/30/2024 9:17 AM EDT 25w1d + headaches, very mild. Usually goes away on own. Blacked out, fainting spell 2-3 weeks ago. Hasn't happened since. documented in this encounter Plan of Treatment Upcoming Encounters Date Type Department Care Team (Late st Contact Info) Description 07/25/2024 9:00 AM EDT Office Visit Gynecology/Obstetrics Nicolette Whitaker [address] [place] [address] Diana Jara PA-C [address] [place] [address] 07/25/2024 9:00 AM EDT [facility] [address] [place] [phone] WhitakerYani montero [address] [place] [address] Scheduled Orders Name Type Priority Associated Diagnoses Orde r Schedule 50-G GESTATIONAL GLUCOSE, 1 HOUR Lab Routine Normal in second trimester Expected: 07/21/2024 (Approximate), Expires: 06/30/2025 CBC WITH WBC DIFFERENTIAL AND ANEMIA REFLEX WORKUP Lab Routine Normal in second trimester Expected: 07/21/2024 (Approximate), Expires: 06/30/2025 SYPHILIS ANTIBODY SCREEN WITH REFLEX TO RPR Lab Routine Normal in second trimester Expected: 07/21/2024 (Approximate), Expires: 06/30/2025 Health Maintenance Due Date Last Done Comments [...] this encounter Visit Diagnoses Diagnosis Normal in second trimester- Primary Family history of trisomy 18 Family history of genetic disease carrier documented in this encounter Care Teams Registration Manager Relationship Specialty Start Date End Date Jimena Neville DO [address] [place] [address] PCP - General Family Medicine 08/04/19 documented as of this encounter
--- OUTSIDE RECORDS SUMMARY | 2024-10-02 13:36 | External Medical Summary | Summary of Care ---
Author Name Unknown Organization [facility] Address [address] [place] [address] Phone [phone] Care Team Providers Care Building Architect Name Role Phone Jimena Neville DO Primary Care Provider [phone] Reason for Visit * Reason Onset Date Comments Advice 07/19/2024 Encounter Details Date Type Department Care Team ([facility] Contact Info) Description 07/19/2024 Telephone Family Practice [facility] [address] [facility] [address] Jimena Neville [facility] [address] [facility] [address] Advice Allergies Active Allergy Reactions Criticality Noted Date Comments Sulfa Antibiotics Hives Low 07/24/2019 documented as of this encounter (statuses as of 07/22/2024) Medications Medication Sig Dispensed Refills Start Date End Date Status Tums E-X 750 750 MG Oral Tablet Chewable (calcium CARBonate) Take 1 Tablet by mouth in the morning. Active 28-0.8 MG Oral Tablet Take by mouth. Active documented as of this encounter (statuses as of 07/22/2024) Active Problems Problem Noted Date Diagnosed Date [...] as of this encounter (statuses as of 07/22/2024) Resolved Problems Problem Noted Date Diagnosed Date Resolved Date Mastitis, 06/01/2023 024 COVID-19 affecting in first trimester 04/14/2022 11/07/2022 Overview: 12 weeks Rubella non-immune status, antepartum 03/16/2022 11/07/2022 Supervision of normal first 03/15/2022 11/07/2022 Anxiety during 03/15/2022 Overview: Has therapist, no meds at [facility], managing well History of pericarditis 07/24/201912/20 documented as of this encounter (statuses as of 07/22/2024) Immunizations Name Administration Dates Next Due COVID-19 [...] money to get more. Never true 09/06/2022 [place] Depression Scale Answer Date Recorded [place] Depression Scale Total 2 03/07/2024 The thought [...] encounter Miscellaneous Notes * Telephone Encounter - Stephania Jean RN - 07/22/2024 10:37 AM EDT See other encounter. Pt directed to the ED by OB * Telephone Encounter - Gabriela Bean OSA - 07/19/2024 11:59 AM EDT Pt called stating she has been experiencing abdominal pain. She states the pain started yesterday and is persistent today. Pt is 28 weeks . She would like a call back about this mercedez. Please advise. documented in this encounter Plan of Treatment Upcoming Encounters Date Type Department Care Team (Late st Contact Info) Description 07/25/2024 9:00 AM EDT Office Visit Gynecology/Obstetrics [facility] [address] [place] [address] Diana Jara PA-C [address] [place] [address] 07/25/2024 9:00 AM EDT Laboratory Laboratory, [facility] [address] [place] [address] [facility] [address] [place] [address] Health Maintenance Due Date Last Done Comments [...] filedocumented as of this encounter Care Teams Building Architect Relationship Specialty Start Date End Date Jimena Neville DO [address] [place] [address] PCP - General Family Medicine 08/04/19 documented as of this encounter
--- OUTSIDE RECORDS SUMMARY | 2024-10-02 13:36 | External Medical Summary ---
Author Name Unknown Address Unknown Organization [id number]:[facility] [place] [address] [place] [address] Laboratory Report Ordering Provider Test Date Status ANGELICA CHRISTENSEN 07/25/2024 10:16:48 Final Observation Date Value Abnormality Reference (Units ) Status Glucose [Moles/volume] in Serum or Plasma --1 hour post 50 g glucose PO 07/25/2024 10:16:48 97 70-129 (mg/dL) Final Performing Location [facility] [place] [address] [place] [address]
--- OUTSIDE RECORDS SUMMARY | 2024-10-02 13:36 | External Medical Summary | Summary of Care ---
Author Name Unknown Organization [facility] Address [address] [place] [address] Phone [phone] Care Team Providers Care Dip Tanker Name Role Phone Jamin Jimena Marylu TRAN Primary Care Provider [phone] Reason for Visit * Reason Comments NEW PATIENT Nasal congestion * Evaluate & Treat - Unlimited Visits (Within 10 days (routine)) - Authorized Specialty Diagnoses / Procedures Referred By Francia evangelista Referred To Contact Otolaryngology Diagnoses Sinus congestion Coral Irizarry CRNP [address] [place] [address] Referral ID Status Reason Start Date Expiration Date Visits Requested Visits Authorized [id number] Authorized Specialty Services Required 04/22/2024 [id number] Encounter Details Date Type Department Care Team ([facility] Contact Info) Description 05/29/2024 12:40 PM EDT Office Visit Otolaryngology [facility] [address] [facility] [place] [address] Brandon Montalvo PA-C [address] [facility] [place] [address] History of paranasal sinus congestion* Allergies Active Allergy Reactions Criticality Noted Date Comments Sulfa Antibiotics Hives Low 07/24/2019 documented as of this encounter (statuses as of 05/29/2024) Medications Medication Sig Dispensed Refills Start Date End Date Status Tums E-X 750 750 MG Oral Tablet Chewable (calcium CARBonate) Take 1 Tablet by mouth in the morning. Active 28-0.8 MG Oral Tablet Take by mouth. Active documented as of this encounter (statuses as of 05/29/2024) Active Problems Problem Noted Date Diagnosed Date Sinus drainage 04/22/2024 15 weeks gestation of 04/22/2024 Sinus congestion 04/22/2024 Upper respiratory tract infection 04/22/2024 Normal 03/07/2024 Family history of trisomy 18 03/15/2022 Overview: MADELINE's sister History of pericarditis 03/15/2022 Overview: Pre-, established with cardiology. Encouraged to schedule f/u with them during . Anxiety 03/14/2022 Obsessive-compulsive disorder 08/10/2021 Generalized anxiety disorder 03/25/2019 Estimated Date of Delivery Comme nts Yes 10/12/2024 Based on last me nstrual period of 01/06/2024 documented as of this encounter (statuses as of 05/29/2024) Resolved Problems Problem Noted Date Diagnosed Date Resolved Date Mastitis, 06/01/2023 024 COVID-19 affecting in first trimester 04/14/2022 11/07/2022 Overview: 12 weeks Rubella non-immune status, antepartum 03/16/2022 11/07/2022 Supervision of normal first 03/15/2022 11/07/2022 Anxiety during 03/15/2022 Overview: Has therapist, no meds at [facility], managing well History of pericarditis 07/24/201912/20 documented as of this encounter (statuses as of 05/29/2024) Immunizations Name Administration Dates Next Due COVID-19 mRNA, LNP-s, No Pre serve, 2-Dose Series ([employer]) 11/03/2021,03/16/2021,02/23/2021 Seasonal Influenza Virus Vac cine, Unspecified [...] money to get more. Never true 09/06/2022 [place] Depression Scale Answer Date Recorded [place] Depression Scale Total 2 03/07/2024 The thought [...] Sign Reading Time Taken Comments Blood Pressure - - Pulse - - Temperature 35.6 C (96 F) 05/29/2024 12:53 PM EDT Respiratory Rate - - Oxygen Saturation - - Inhaled Oxygen Concentration - - Weight 59.4 kg (131 lb) 05/29/2024 12:53 PM EDT Height 170.2 cm (5' 7") 05/29/2024 12:53 PM EDT Body Mass Index 20.52 05/29/2024 12:53 PM EDT documented in this encounter Patient Instructions * Patient Instructions* Brandon Montalvo PA-C - 05/29/2024 1:03 PM EDT -Saline nasal irrigations twice daily with distilled water only, most important to get your nose below level of your mouth -20-30 min following saline irrigation use flonase nasal spray as directed today (point outward toward outer corner of eye/ear on same side). -Cool mist humidifier in bedroom overnight -Do all of the above for minimum of 6-8 weeks for maximum benefit documented in this encounter Progress Notes * Brandon Montalvo PA-C - 05/29/2024 12:50 PM EDT HISTORY OF PRESENT ILLNESS This 33 year old female is seen at the request of Jimena Neville DO for the initial evaluation of sinus congestion Patient is accompanied by self She is currently 20w4d with her second child. Her symptoms have been present for several weeks but has since resolved. She saw her PCP last month due to ongoing sinus congestion and sinus drainage with edgar streaks in the mucous. PCP thought they saw possible L sided polyp and had her start flonase. She did not use flonase and symptoms resolved spontaneously. Sometimes she will use saline spray. Does not typically have chronic congestion but when she gets URIs the congestion typically lingers awhile. No hx of sinus/nasal surgeries. No allergies. Nursing Notes: Felipa Austin LPN 05/29/24 1258 Signed Chief Complaint Patient presents with NEW PATIENT Nasal congestion Patient presents today for evaluation of her nose. Pt states she had ongoing nasal congestion for several weeks which made her see her pcp, nasal drainage with edgar streaks. Pcp noticed possible polyp on exam on left nostril. Symptoms have since resolved. She did not need treated with any medications. She is here to just follow up on this. Sometimes uses saline spray for sinuses. Pt is currently . Problem List Patient Active Problem List Diagnosis Date Noted Sinus drainage [J34.89] 04/22/2024 15 weeks gestation of [Z3A.15] 04/22/2024 Sinus congestion [R09.81] 04/22/2024 Upper respiratory tract infection [J06.9] 04/22/2024 Normal [Z34.90] 03/07/2024 Family history of trisomy 18 [Z82.79] 03/15/2022 FOB's sister History of pericarditis [Z86.79] 03/15/2022 Pre-, established with cardiology. Encouraged to schedule f/u with them during . Anxiety [F41.9] 03/14/2022 Obsessive-compulsive disorder [F42.9] 08/10/2021 Generalized anxiety disorder [F41.1] 03/25/2019 Past Medical History: Diagnosis Date Anxiety 03/14/2022 Obsessive-compulsive disorder 08/10/2021 Pericarditis Past Surgical History: Procedure Laterality Date DENTAL SURGERY PROCEDURE NEC EGD, FLEXIBLE, DIAGNOSTIC 10/31/2019 inactive gastritis/ESOPHAGOGASTRODUODENOSCOPY (EGD), FLEXIBLE, TRANSORAL, DIAGNOSTIC performed by Hayley Hooper MD at [facility] Current Outpatient Medications Medication Sig Dispense Refill Tums E-X 750 750 MG Oral Tablet Chewable (calcium CARBonate) Take 1 Tablet by mouth in the morning. Flulaval Quadrivalent 0.5 ML Suspension Prefilled Syringe (influenza virus vaccine, quadrivalent) Inject into a large muscle. (Patient not taking: Reported on 04/22/2024) 0.5 mL 0 28-0.8 MG Oral Tablet Take by mouth. No current facility-administered medications for this visit. Review of patient's allergies indicates: Allergen Reactions Sulfa Antibiotics Hives Family History Problem Relation Name Age of Onset Heart Disorder Father arrhythmia Heart attack Grandfather (Paternal) No Known Problems Mother Other (Raynaud's syndrome) Sister No Known Problems Brother No Known Problems Sister Social History Social History Tobacco Use Smoking status: Never Smokeless tobacco: Never Substance Use Topics Alcohol use: Not Currently Comment: on the weekends, some wine 1-2 glasses Vaping/E-Cigarette Use Vaping/E-Cigarette Use Never User Vaping/E-Cigarette Substances Vaping/E-Cigarette Devices I reviewed the updated past medical history, problem list, past surgical history, social history, family history, allergy and current medication list. ROS General: No recent weight loss/gain. No fatigue. Cardio: No palpitations, chest pain, no orthopnea, or dyspnea on exertion. Lung: No cough, wheezing, sputum or shortness of breath. Nerve: No numbness, weakness of extremities, diplopia, vertigo, mental status change Heme: No easy bruising, bleeding. No fever. No chills. No sweats. Neuro: No memory loss, no weakness, no numbness. Skin: No rash, itching or new/changing lesions. Eyes: No change in vision, redness of the eyes, or ocular pain. ROS otherwise negative unless stated in PMH or HPI. Temp 35.6 C (96 F) (Tympanic) | Ht 1.702 m (5' 7") | Wt 59.4 kg (131 lb) | LMP 01/06/2024 | BMI20.52 kg/m | BSA 1.68 m PHYSICAL EXAMINATION: Gen: Patient is a healthy female and appears her stated age. She is alert, oriented, cooperative and in no acute distress. The patient is neither obese nor dysmorphic.. She is appropriately conversant and Her voice is normal in character and quality. Face: No facial asymmetry. There was no erythema or edema noted. Facial movement was symmetric without weakness. No skin lesions were detected. Eyes: The pupils are equal round. No scleral icterus. Ears: The auricles are normally formed without lesions. The external auditory canals are patent andwithout lesion. Both tympanic membranes are intact and freely mobile without perforation, effusion or significant retraction pockets. Nose: The septum is non obstructing and the turbinates are without abnormality. No masses, polyps, mucopus, or other lesion are visualized. Oral Cavity: The mucosa is moist without lesion. The hard palate is intact. The soft palate is intact . The occlusion is stable. Tongue is of normal size with normal mobility. Oropharynx: The tonsils are unremarkable. There is no erythema and no exudate on either side. Salivary glands: No visible or palpable abnormalities of the parotid glands or submandibular glandsbilaterally Neck: Thyroid- no thyromegaly. No neck mass to palpation. Lymphatics: No visible or palpable abnormalities of the lymph nodes of the posterior triangle, anterior cervical chain, central neck or submandibular region. Cranial nerves: Cranial nerves II, III, IV, and were noted to be intact via extra-ocular muscle movement testing. Cranial nerve VII noted to be intact and symmetric by facial movement. Cranial nerve VIII was grossly intact (tuning forks not used). Cranial nerves IX and X noted to be intact by gag reflex and palatal movement. Cranial nerve XII noted to be intact by active and symmetric tongue movement. CV/Heart: regular rate Lungs: No audible stridor No increased work of breathing Able to speak in full sentences Procedure: In order to assess the paranasal sinuses, endoscopy of the nose and paranasal sinuses was performed. The scope was used to examine each side of the nose. There were no masses visualized. The nasal mucosa was without lesion. The middle meatus on each side was clear of mass, polyp, or mucopus. The septum was non-obstructing. The nasopharynx was without lesion. The patient tolerated the procedure well. I performed the procedure, Lorena Sanchez PA-C was present for the procedure. ASSESSMENT: 1. History of paranasal sinus congestion Plan: No signs of polyp or other mass on exam. Can use saline nasal irrigations and flonase. F/U PRN Pt verbalized understanding and agrees with plan. Questions/Concerns addressed. Patient Goals for plan of care discussed in detail. Brandon Montalvo PA-C [facility] [address] [place] [address] 05/29/2024 1:17 PM I spent a total of 20-29 minutes (exact time 22 mins) on the date of service in preparation, delivery, and documentation of the care provided to Marilou Montalvo excluding any time spent in the performance of separately billed services. documented in this encounter Nursing Notes * Felipa Austin LPN - 05/29/2024 12:54 PM EDT Chief Complaint Patient presents with NEW PATIENT Nasal congestion Patient presents today for evaluation of her nose. Pt states she had ongoing nasal congestion for several weeks which made her see her pcp, nasal drainage with edgar streaks. Pcp noticed possible polyp on exam on left nostril. Symptoms have since resolved. She did not need treated with any medications. She is here to just follow up on this. Sometimes uses saline spray for sinuses. Pt is currently . documented in this encounter Plan of Treatment Upcoming Encounters Date Type Department Care Team (Late st Contact Info) Description 05/30/2024 9:30 AM EDT Imaging Radiology [facility] [address] [place] [address] 05/30/2024 11:30 AM EDT Office Visit Gynecology/Obstetrics [facility] [address] [place] [address] Diana Jara PA-C [address] [place] [address] Scheduled Referrals Name Type Priority Associated Diagnoses Order Schedule ADULT/PEDS OTOLARYNGOLOGY REFERRAL OP Referral Within 10 days (routine) Sinus congestion Ordered: 04/22/2024 Health Maintenance Due Date Last Done Comments [...] as of this encounter Visit Diagnoses Diagnosis History of paranasal sinus congestion- Primary documented in this encounter Care Teams Dip Tanker Relationship Specialty Start Date End Date Jimena Neville DO [address] [facility] [place] [address] PCP - General Family Medicine 08/04/19 documented as of this encounter
--- OUTSIDE RECORDS SUMMARY | 2024-10-02 13:36 | External Medical Summary | Summary of Care ---
Author Name Unknown Organization [facility] Address [address] [place] [address] Phone [phone] Care Team Providers Care Radioactive Waste Disposal Dispatcher Name Role Phone Jimena Neville DO Primary Care Provider [phone] Reason for Visit * Reason Onset Date Comments Advice 04/18/2024 Encounter Details Date Type Department Care Team ([facility] Contact Info) Description 04/18/2024 Telephone Family Practice [facility] [address] [facility] [address] [facility] [address] [facility] [address] Advice Allergies Active Allergy Reactions Criticality Noted Date Comments Sulfa Antibiotics Hives Low 07/24/2019 documented as of this encounter (statuses as of 04/21/2024) Medications Medication Sig Dispensed Refills Start Date End Date Status Tums E-X 750 750 MG Oral Tablet Chewable (calcium CARBonate) Take 1 Tablet by mouth in the morning. Active 28-0.8 MG Oral Tablet Take by mouth. Active documented as of this encounter (statuses as of 04/21/2024) Active Problems Problem Noted Date Diagnosed Date Normal 03/07/2024 Family history of trisomy 18 03/15/2022 Overview: FOJose C's sister History of pericarditis 03/15/2022 Overview: Pre-, established with cardiology. Encouraged to schedule f/u with them during . Anxiety 03/14/2022 Obsessive-compulsive disorder 08/10/2021 Generalized anxiety disorder 03/25/2019 Estimated Date of Delivery Comme nts Yes 10/12/2024 Based on last me nstrual period of 01/06/2024 documented as of this encounter (statuses as of 04/21/2024) Resolved Problems Problem Noted Date Diagnosed Date Resolved Date Mastitis, 06/01/2023 024 COVID-19 affecting in first trimester 04/14/2022 11/07/2022 Overview: 12 weeks Rubella non-immune status, antepartum 03/16/2022 11/07/2022 Supervision of normal first 03/15/2022 11/07/2022 Anxiety during 03/15/2022 Overview: Has therapist, no meds at [facility], managing well History of pericarditis 07/24/201912/20 documented as of this encounter (statuses as of 04/21/2024) Immunizations Name Administration Dates Next Due COVID-19 [...] money to get more. Never true 09/06/2022 [place] Depression Scale Answer Date Recorded [place] Depression Scale Total 2 03/07/2024 The thought [...] encounter Miscellaneous Notes * Telephone Encounter - Karly Cruz LPN - 04/21/2024 10:10 AM EDT Can be evaluated at appt. * Telephone Encounter - Antonella Lewis OSA - 04/18/2024 2:24 PM EDT Pt calling in states she is having cabezas spots when she blows her nose sometimes in her mucus, has an appointment on 04/22, requesting someone give hr a call. documented in this encounter Plan of Treatment Upcoming Encounters Date Type Department Care Team (Late st Contact Info) Description 04/22/2024 9:40 AM EDT Office Visit Family Practice [facility] [address] [place] [address] Croal Irizarry CRNP [address] [place] [address] 05/02/2024 10:30 AM EDT Office Visit Gynecology/Obstetrics [facility] [address] [place] [address] Claudine Winn CRNP [address] [place] [address] Health Maintenance Due Date Last Done Comments Hepatitis B (1 of 3 - 19+ 3-dose series) 2009 Depression Screening 10/12/2021 10/12/2020 COVID-19 Vaccine (4 - 2022-24 season) 2023 11/03/2021, 03/16/2021, 02/23/2021 Pap Smear [...] filedocumented as of this encounter Care Teams Radioactive Waste Disposal Dispatcher Relationship Specialty Start Date End Date Jimena Neville DO [address] [place] [address] PCP - General Family Medicine 08/04/19 documented as of this encounter
--- OUTSIDE RECORDS SUMMARY | 2024-10-02 13:36 | External Medical Summary | Summary of Care ---
Author Name Unknown Organization [facility] Address [address] [facility] [place] [address] Phone [phone] Care Team Providers Care Special Forces Engineer Sergeant Name Role Phone Jamin Jimena Marylu TRAN Primary Care Provider [phone] Encounter Details Date Type Department Care Team ([facility] Contact Info) Description 06/03/2024 Telephone Gynecology/Obstetrics [facility] [address] [place] [address] Jaime Thayer MD [address] [place] [address] Allergies Active Allergy Reactions Criticality Noted Date Comments Sulfa Antibiotics Hives Low 07/24/2019 documented as of this encounter (statuses as of 06/03/2024) Medications Medication Sig Dispensed Refills Start Date End Date Status Tums E-X 750 750 MG Oral Tablet Chewable (calcium CARBonate) Take 1 Tablet by mouth in the morning. Active 28-0.8 MG Oral Tablet Take by mouth. Active documented as of this encounter (statuses as of 06/03/2024) Active Problems Problem Noted Date Diagnosed Date [...] as of this encounter (statuses as of 06/03/2024) Resolved Problems Problem Noted Date Diagnosed Date Resolved Date Mastitis, 06/01/2023 024 COVID-19 affecting in first trimester 04/14/2022 11/07/2022 Overview: 12 weeks Rubella non-immune status, antepartum 03/16/2022 11/07/2022 Supervision of normal first 03/15/2022 11/07/2022 Anxiety during 03/15/2022 Overview: Has therapist, no meds at [facility], managing well History of pericarditis 07/24/201912/20 documented as of this encounter (statuses as of 06/03/2024) Immunizations Name Administration Dates Next Due COVID-19 mRNA, LNP-s, No Pre serve, 2-Dose Series ([employer]) 11/03/2021,03/16/2021,02/23/2021 Seasonal Influenza Virus Vac cine, Unspecified [...] money to get more. Never true 09/06/2022 [place] Depression Scale Answer Date Recorded [place] Depression Scale Total 2 03/07/2024 The thought [...] encounter Miscellaneous Notes * Telephone Encounter - Marisol Sampson LPN - 06/03/2024 11:52 AM EDT Spoke with pt she verbalized understanding * Telephone Encounter - Marisol Sampson LPN - 06/03/2024 11:43 AM EDT Called pt lm to return call triage number provided. * Telephone Encounter - Jaime Thayer MD - 06/03/2024 11:39 AM EDT If she hit the head she may need to go to ER Thanks * Telephone Encounter - Marisol Sampson LPN - 06/03/2024 11:22 AM EDT Pt called in with concerns if becoming lightheaded and dizzy this morning with standing up. Pt believes her bp dropped and she did black out when she woke up she was on her hands and knees and hit her head and does have a carlene. Pt said she has a slight LABOY's denies thinking she hit belly, denies anyvb, rom or abd pain. Pt said she has felt baby move since. I instructed pt to monitor if has LABOY to take tylenol monitor for any vb, lof. I also told pt I will reach out to air traffic control specialist center provider for any additional instructions along with telling pt to reach out to PCP in regards to low BP and symptoms she is experiencing. Please review and advise documented in this encounter Plan of Treatment Upcoming Encounters Date Type Department Care Team (Late st Contact Info) Description 06/13/2024 9:45 AM EDT Imaging Radiology [facility] [address] [facility] [address] [place] [address] 06/30/2024 9:00 AM EDT Office Visit Gynecology/Obstetrics [facility] [address] [place] [address] Diana Jara PA-C [address] [place] [address] Health Maintenance Due Date Last Done Comments Pneumococcal Vaccine: Pediatrics (0 to 5 Years) and At-Risk Patients (6 to 64 Years) (1 of 2 - PCV) 1996 Hepatitis B Vaccine (1 of 3 - 19+ 3-dose series) 2009 Depression Screening 10/12/2021 10/12/2020 COVID-19 Vaccine ( - 2022- season) 2023 11/03/2021, 03/16/2021, 02/23/2021 Influenza Vaccine [...] filedocumented as of this encounter Care Teams Special Forces Engineer Sergeant Relationship Specialty Start Date End Date Jimena Neville DO [address] [place] [address] PCP - General Family Medicine 08/04/19 documented as of this encounter
--- OUTSIDE RECORDS SUMMARY | 2024-10-02 13:36 | External Medical Summary | Summary of Care ---
Author Name Unknown Organization [facility] Address [address] [facility] [place] [address] Phone [phone] Care Team Providers Care Fuse Spooler Name Role Phone Jamin Jimena Marylu TRAN Primary Care Provider [phone] Reason for Visit * Reason Comments Return Visit Encounter Details Date Type Department Care Team ([facility] Contact Info) Description 05/30/2024 11:30 AM EDT Office Visit Gynecology/Obstetric s Nicolette Whitaker [address] [place] [address] Diana Jara PA-C [address] [place] [address] Normal in second trimester*; Family history of trisomy 18; Encounter for follow-up ultrasound of anatomy Allergies Active Allergy Reactions Criticality Noted Date Comments Sulfa Antibiotics Hives Low 07/24/2019 documented as of this encounter (statuses as of 05/30/2024) Medications Medication Sig Dispensed Refills Start Date End Date Status Tums E-X 750 750 MG Oral Tablet Chewable (calcium CARBonate) Take 1 Tablet by mouth in the morning. Active 28-0.8 MG Oral Tablet Take by mouth. Active documented as of this encounter (statuses as of 05/30/2024) Active Problems Problem Noted Date Diagnosed Date [...] as of this encounter (statuses as of 05/30/2024) Resolved Problems Problem Noted Date Diagnosed Date Resolved Date Mastitis, 06/01/2023 024 COVID-19 affecting in first trimester 04/14/2022 11/07/2022 Overview: 12 weeks Rubella non-immune status, antepartum 03/16/2022 11/07/2022 Supervision of normal first 03/15/2022 11/07/2022 Anxiety during 03/15/2022 Overview: Has therapist, no meds at [facility], managing well History of pericarditis 07/24/201912/20 documented as of this encounter (statuses as of 05/30/2024) Immunizations Name Administration Dates Next Due COVID-19 [...] money to get more. Never true 09/06/2022 [place] Depression Scale Answer Date Recorded [place] Depression Scale Total 2 03/07/2024 The thought [...] Sign Reading Time Taken Comments Blood Pressure 98/56 05/30/2024 11:22 AM EDT Pulse - - Temperature - - Respiratory Rate - - Oxygen Saturation - - Inhaled Oxygen Concentration - - Weight 60.3 kg (133 lb) 05/30/2024 11:22 AM EDT Height 170.2 cm (5' 7") 05/30/2024 11:22 AM EDT Body Mass Index 20.83 05/30/2024 11:22 AM EDT documented in this encounter Progress Notes * Diana Jara PA-C - 05/30/2024 11:31 AM EDT 20w5d Doing well, anatomy today. + FHT by ultrasound. Needs follow up for missed views in 2 weeks. Order placed. Denies VB, LOF, contractions. Feeling baby move. RTC in 4 weeks Diana Jara PA-C documented in this encounter Nursing Notes * Sandy Winn RN - 05/30/2024 11:23 AM EDT Patient here for ROSCOE visit 20w5d Had anatomy today No concerns Sandy Winn RN documented in this encounter Plan of Treatment Upcoming Encounters Date Type Department Care Team (Late st Contact Info) Description 06/13/2024 9:45 AM EDT Imaging Radiology [facility] [place] [address] [employer] [address] [place] [address] 06/30/2024 9:00 AM EDT Office Visit Gynecology/Obstetrics [facility] [address] [employer] [place] [address] Diana Jara PA-C [address] [place] [address] Scheduled Orders Name Type Priority Associated Diagnoses Orde r Schedule US PREG LIMITED 1 OR MORE FETUSES Medical Imaging Routine Normal in second trimester Encounter for follow-up ultrasound of anatomy Expected: 06/13/2024, Expires: 06/30/2025 Health Maintenance Due Date Last [...] 18 Family history of genetic disease carrier Encounter for follow-up ultrasound of anatomy documented in this encounter Care Teams Fuse Spooler Relationship Specialty Start Date End Date Jimena Neville DO [address] [place] [address] PCP - General Family Medicine 08/04/19 documented as of this encounter
--- OUTSIDE RECORDS SUMMARY | 2024-10-02 13:36 | External Medical Summary ---
Author Name Unknown Address Unknown Organization : Laboratory Report Ordering Provider Test Date Status KATHIE JOHNSON 05/02/2024 10:45:06 Final Observation Date Value Abnormality Reference (Units ) Status INTERPRETATION 05/02/2024 10:45:06 SEE BELOW Final Screen negative for open NTD . RISK FOR ONTD 05/02/2024 10:45:06 <1:5000 Final CALC'D GESTATIONAL AGE 0605/02/2024 10:45:06 16.7 Final AFP, SERUM 05/02/2024 10:45:06 49.1 (ng/mL) Final AFP MOM 05/02/2024 10:45:06 1.18 Final Reference Range:
NTD <2 .50
IDD <1.90
TWINS <4.00
TWINS IDD <3.50
TRIPLETS <4.50
The AFP test result indicates that this patient is
screen negative for open NTD. It should be noted
that normal test results can never guarantee the
of a normal baby and that 2-3% of newborns
have some type of physical or mental defect, many
of which are undetectable through any known
diagnostic technique.
This is a screening test, not a diagnostic test.
This risk assessment report is based in part on
demographic data provided by the ordering
physician. Please notify the laboratory promptly
if any data are incorrect. For assistance with
recalculations, please call your local [facility] laboratory. For assistance with
interpretation of these results, please contact
your Local [facility] genetic counselor or
call [phone] ([phone]).
Interpretive Cutoffs
Screen Positive for Open NTD:
> or = 2.50 adjusted MOM
> or = 1.90 adjusted MOM for insulin- dependent diabetics
> or = 4.00 adjusted MOM for twins
> or = 3.50 adjusted MOM for twins insulin-dependent diabetics
> or = 4.50 adjusted MOM for triplets
For additional information, please refer to
[email or web address]
(This link is being provided for
informational/educational purposes only.) DATE OF 05/02/2024 10:45:06 1990 Final COLLECTION DATE 05/02/2024 10:45:06 05/02/2024 Final MATERNAL WEIGHT 05/02/2024 10:45:06 128 (lbs ) Final EST'D DATE OF DELIVERY 05/02/2024 10:45:06 10/12/2024 Final PERRI DETERMINED BY 05/02/2024 10:45:06 LMP Final MOTHER'S ETHNIC ORIGIN 05/02/2024 10:45:06 WHITE Final NUMBER OF FETUSES 05/02/2024 10:45:06 1 Final INSULIN DEPEND DIABETIC 05/02/2024 10:45:06 NO Final REPEAT SPECIMEN 05/02/2024 10:45:06 NO Final HX OF NEURAL TUBE DEFECTS 05/02/2024 10:45:06 NO Final PREV DOWN SYND 05/02/2024 10:45:06 NO Final DONOR EGG 05/02/2024 10:45:06 NO Final DONOR AGE: EGG RETRIEVAL 05/02/2024 10:45:06 NOT GIVEN Final Test performed by [facility]
[address] [facility],
[place] [address]

School Physical Therapist: Shima Tidwell MD,PHD,[place]
Test Reported by Cesia Cota,
[facility],
[address] [place], [place]
Nito Harris M.D., Ph.D., Director of Laboratories
, NOÉ [id number] Performing Location
--- OUTSIDE RECORDS SUMMARY | 2024-10-02 13:36 | External Medical Summary | Summary of Care ---
Author Name Unknown Organization [facility] Address [address] [place] [address] Phone [phone] Care Team Providers Care Jewel Staker Name Role Phone Jamin Jimena Marylu TRAN Primary Care Provider [phone] Reason for Referral * Evaluate & Treat - Unlimited Visits (Within 10 days (routine)) - Authorized Specialty Diagnoses / Procedures Referred By Francia evangelista Referred To Contact Otolaryngology Diagnoses Sinus congestion Coral Irizarry CRNP [address] [place] [address] Referral ID Status Reason Start Date Expiration Date Visits Requested Visits Authorized [id number] Authorized Specialty Services Required 04/22/[phone] Question Answer Referral Priority Within 10 days (routine) Where should this appointment be scheduled? [facility] Reason for Referral Nasal/Sinus/Allergy Conditions Specific Condition: Nasal Congestion/Obstruction Reason for Visit * Reason Comments Congestion ONGOING CONGESTION I N SINUSES. HAS HAD MCNAMARA STREAKS/DRAINAGE ON OCCASION. Encounter Details Date Type Department Care Team ([facility] Contact Info) Description 04/22/2024 9:40 AM EDT Office Visit Family Practice [facility] [address] [place] [address] Coral Irizarry CRNP [address] [place] [address] Upper respiratory tract infection, unspecified type*; Sinus congestion; 15 weeks gestation of ; Sinus drainage Allergies Active Allergy Reactions Criticality Noted Date Comments Sulfa Antibiotics Hives Low 07/24/2019 documented as of this encounter (statuses as of 04/22/2024) Medications Medication Sig Dispensed Refills Start Date End Date Status Tums E-X 750 750 MG Oral Tablet Chewable (calcium CARBonate) Take 1 Tablet by mouth in the morning. Active 28-0.8 MG Oral Tablet Take by mouth. Active documented as of this encounter (statuses as of 04/22/2024) Active Problems Problem Noted Date Diagnosed Date [...] as of this encounter (statuses as of 04/22/2024) Resolved Problems Problem Noted Date Diagnosed Date Resolved Date Mastitis, 06/01/2023 024 COVID-19 affecting in first trimester 04/14/2022 11/07/2022 Overview: 12 weeks Rubella non-immune status, antepartum 03/16/2022 11/07/2022 Supervision of normal first 03/15/2022 11/07/2022 Anxiety during 03/15/2022 Overview: Has therapist, no meds at [facility], managing well History of pericarditis 07/24/201912/20 documented as of this encounter (statuses as of 04/22/2024) Immunizations Name Administration Dates Next Due COVID-19 [...] money to get more. Never true 09/06/2022 Burton Depression Scale Answer Date Recorded Burton Depression Scale Total 2 03/07/2024 The thought [...] Sign Reading Time Taken Comments Blood Pressure 98/60 04/22/2024 9:44 AM EDT Pulse 87 04/22/2024 9:44 AM EDT Temperature 36.2 C (97.2 F) 04/22/2024 9:44 AM ED T Respiratory Rate - - Oxygen Saturation - - Inhaled Oxygen Concentration - - Weight - - Height - - Body Mass Index - - documented in this encounter Progress Notes * Coral Irizarry CRNP - 04/22/2024 9:43 AM EDT URI Family Medicine Visit CC: sINUS CONGESTION History of Present Illness: Marilou Montalvo is a 33 year old female presenting with complaints of mcnamara mucous in sinus mucous. Started 10 days ago. 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 She has mold around windows -fever, t max - -chills -sweats -decreased appetite +tolerating fluids +congestion +sinus pressure -loss of taste or smell -runny nose +PND -ear pain -sore throat -blurred vision -eye discharge -cough -productive of mucous -sob -wheezing +nausea- 15 weeks -diarrhea -constipation -vomiting -body aches -Rash -Sleep disruption +headache Social History Socioeconomic History Marital status: Spouse name: Not on file Number of children: Not on file Years of education: Not on file Highest education level: Not on file Occupational History Not on file Tobacco Use Smoking status: Never Smokeless tobacco: Never Vaping Use Vaping status: Never Used Substance and Sexual Activity Alcohol use: Not Currently Comment: on the weekends, some wine 1-2 glasses Drug use: Never Sexual activity: Yes Partners: Male Other Topics Concern Not on file Social History Narrative Not on file Social Determinants of Health Financial Resource Strain: Not on file Food Insecurity: No Food Insecurity (09/06/2022) Hunger Vital Sign Worried About Running Out of Food in the Last Year: Never true Ran Out of Food in the Last Year: Never true Transportation Needs: Not on file Physical Activity: Not on file Stress: Not on file Social Connections: Not on file Intimate Partner Violence: Not on file Housing Stability: Not on file PMH: Past Medical History: Diagnosis Date Anxiety 03/14/2022 Obsessive-compulsive disorder 08/10/2021 Pericarditis Past Surgical History: Procedure Laterality Date DENTAL SURGERY PROCEDURE NEC EGD, FLEXIBLE, DIAGNOSTIC 10/31/2019 inactive gastritis/ESOPHAGOGASTRODUODENOSCOPY (EGD), FLEXIBLE, TRANSORAL, DIAGNOSTIC performed by Hayley Hooper MD at END[facility] Current Outpatient Medications Medication Sig Dispense Refill 28-0.8 MG Oral Tablet Take by mouth. Flulaval Quadrivalent 0.5 ML Suspension Prefilled Syringe (influenza virus vaccine, quadrivalent) Inject into a large muscle. 0.5 mL 0 Tums E-X 750 750 MG Oral Tablet Chewable (calcium CARBonate) Take 1 Tablet by mouth in the morning. No current facility-administered medications for this visit. Review of patient's allergies indicates: Allergen Reactions Sulfa Antibiotics Hives Most Recent Immunizations Administered Date(s) Administered COVID-19 mRNA, LNP-s, No Preserve, 2-Dose Series (Deluux) 11/03/2021 Seasonal Influenza Virus Vaccine, Unspecified Formulation 09/27/2019 Seasonal Influenza, PF, 6 M & above, IM , (FluLaval or Fluzone) 09/04/2023 TDAP (age 10 and older)(Boostrix) 09/06/2022 Review of Systems: Physical Exam: LMP 01/06/2024 Physical Exam HENT: Head: Normocephalic. Right Ear: A middle ear effusion is present. Left Ear: No middle ear effusion. Nose: Mucosal edema and congestion present. Left Nostril: Occlusion present. Comments: Left side occluded- erythema, no discharge Mouth/Throat: Pharynx: No posterior oropharyngeal erythema. Tonsils: No tonsillar exudate. Cardiovascular: Rate and Rhythm: Normal rate and regular rhythm. Pulmonary: Effort: Pulmonary effort is normal. Breath sounds: Normal breath sounds. Musculoskeletal: Cervical back: Normal range of motion. Lymphadenopathy: Cervical: No cervical adenopathy. Neurological: Mental Status: She is alert and oriented to person, place, and time. Psychiatric: Attention and Perception: Attention normal. Mood and Affect: Mood normal. Speech: Speech normal. Behavior: Behavior normal. Behavior is cooperative. Thought Content: Thought content normal. Cognition and Memory: Cognition and memory normal. Judgment: Judgment normal. Assessment and Plan: 1. Upper respiratory tract infection, unspecified type X 10 DAYS Nontoxic and afebrile Continue nasal saline 2. Sinus congestion Increased x 10 days Also 15 weeks Also notes mcnamara mucous-spots. Recommend ENT eval - ADULT/PEDS OTOLARYNGOLOGY REFERRAL OP Can try flonase- 2 sprays per nostril Inhaler use reviewed Ok for - if needed Consider culture 3. 15 weeks gestation of No cramping or bleeding 4. Sinus drainage With mcnamara spots, not black and no blood Consider culture Referral to ent for further eval I have advised the patient to call our office incase of any worsening or new symptoms. I spent a total of 20-29 minutes (exact time 20 mins) on the date of service in preparation, delivery, and documentation of the care provided to Marilou Montalvo excluding any time spent in the performance of separately billed services. Sam, MSN, LIVIA [facility] documented in this encounter Plan of Treatment Upcoming Encounters Date Type Department Care Team (Late st Contact Info) Description 05/02/2024 10:30 AM EDT Office Visit Gynecology/Obstetrics [facility] [address] [place] [address] Claudine Winn CRNP [address] [place] [address] 06/16/2024 12:40 PM EDT Office Visit Otolaryngology, Anupama Nickerson [address] [place] [address] Madhav Zhong PA-C [address] [place] [address] [address] Scheduled Referrals Name Type Priority Associated Diagnoses Order Schedule ADULT/PEDS OTOLARYNGOLOGY REFERRAL OP Referral Within 10 days (routine) Sinus congestion Ordered: 04/22/2024 Health Maintenance Due Date Last Done Comments Hepatitis B (1 of 3 - 19+ 3-dose series) 2009 Depression Screening 10/12/2021 10/12/2020 COVID-19 Vaccine ( season) 2023 11/03/2021, 03/16/2021, 02/23/2021 Pap Smear [...] as of this encounter Visit Diagnoses Diagnosis Upper respiratory tract infection, unspecified type- Primary Sinus congestion Other diseases of nasal cavity and sinuses 15 weeks gestation of state, incidental Sinus drainage Other diseases of nasal cavity and sinuses documented in this encounter Care Teams Jewel Staker Relationship Specialty Start Date End Date Jimena Neville DO [address] [place] [address] PCP - General Family Medicine 08/04/19 documented as of this encounter
--- OUTSIDE RECORDS SUMMARY | 2024-10-02 13:36 | External Medical Summary | Summary of Care ---
Author Name Unknown Organization [facility] Address [address] [place] [address] Phone [phone] Care Team Providers Care Senior Investment Manager Name Role Phone JaminJimena Marylu TRAN Primary Care Provider [phone] Reason for Visit * Reason Comments Return Visit Encounter Details Date Type Department Care Team ([facility] st Contact Info) Description 05/02/2024 10:30 AM EDT Office Visit Gynecology/Obstetric s Nicolette Whitaker [address] [place] [address] Claudine Winn CRNP [address] [place] [address] Normal in second trimester*; Family history of [...] 03/15/2022 Overview: Has therapist, no meds at [facility], managing well History of pericarditis 07/24/201912/20 documented as of this encounter (statuses as of 05/02/2024) Immunizations Name Administration Dates Next Due COVID-19 mRNA, LNP-s, No Pre serve, 2-Dose Series (Restlet) 11/03/2021,03/16/2021,02/23/2021 Seasonal Influenza Virus Vac cine, Unspecified [...] money to get more. Never true 09/06/2022 [place] Depression Scale Answer Date Recorded [place] Depression Scale Total 2 03/07/2024 The thought [...] Sign Reading Time Taken Comments Blood Pressure 104/58 05/02/2024 10:32 AM EDT Pulse - - Temperature - - Respiratory Rate - - Oxygen Saturation - - Inhaled Oxygen Concentration - - Weight 58.5 kg (129 lb) 05/02/2024 10:32 AM EDT Height 170.2 cm (5' 7") 05/02/2024 10:32 AM EDT Body Mass Index 20.2 05/02/2024 10:32 AM EDT documented in this encounter Progress Notes * Claudine Winn CRNP - 05/02/2024 10:39 AM EDT 16w5d No complaints. Feeling well overall. No FM yet. No bleeding. Low risk Qnatal. MSAFP today. Anatomy u/s with next visit. LIVIA Barrientos documented in this encounter Nursing Notes * Marisol Sampson LPN - 05/02/2024 10:32 AM EDT 16w5d documented in this encounter Plan of Treatment Upcoming Encounters Date Type Department Care Team (Late st Contact Info) Description 05/02/2024 11:10 AM EDT Laboratory Laboratory, [facility] [address] [place] [id number] [facility] [address] [facility] [place] [address] Arrived 05/30/2024 9:30 AM EDT Imaging Radiology [facility] [address] [facility] [place] [address] 05/30/2024 11:30 AM EDT Office Visit Gynecology/Obstetrics [address] [place] [address] Diana Jara PA-C [address] [facility] [place] [address] 06/16/2024 12:40 PM EDT Office Visit Otolaryngology, Anupama Nickerson [address] [place] [address] Madhav Zhong PA-C [address] [place] [address] [address] Pending Results Name Type Priority Associated Diagnoses Date /Time MATERNAL SERUM AFP Lab Routine Normal in second trimester 05/02/2024 10:45 AM EDT Scheduled Orders Name Type Priority Associated Diagnoses Orde r Schedule US PREG SINGLE/1ST GEST, 14 WEEKS OR LATER Medical Imaging Routine Normal in second trimester Expected: 05/16/2024 (Approximate), Expires: 06/01/2025 Health Maintenance Due Date Last Done Comments [...] carrier documented in this encounter Care Teams Senior Investment Manager Relationship Specialty Start Date End Date Jimena Neville DO [address] [place] [address] PCP - General Family Medicine 08/04/19 documented as of this encounter
[2024-10-02] MEDS: IBUPROFEN 600 MG TAB PO PRN (16:05)
[2024-10-03 06:18] LABS: Hematocrit (blood only) 32.7 % (37.0-47.0); Hemoglobin 11.3 g/dl (12.0-16.0); Mean Corpuscular Hemoglobin 33.2 pg (25.0-34.0); Mean Corpuscular Hgb Conc 34.6 g/dL (32.0-36.0); Mean Corpuscular Volume 96.2 fL (80.0-100.0); Mean Platelet Volume 9.4 fL (9.4-12.4); Platelet Count 238 K/uL (130-400); RDW Coefficient of Variation 12.7 % (11.5-14.5); RDW Standard Deviation 44.8 fL (36.4-46.3); White Blood Count 8.33 K/ul (4.8-10.8)
[2024-10-03] MEDS: METHYLERGONOVINE MALEATE 0.2 MG/ML AMP ONE (07:14)
--- NOTE | 2024-10-03 10:36 | Obstetrical Progress Note ---
Date of Service October 03, 2024 Assessment & Plan (1) Normal course: PPD #1 pt doing well No complaints Results & Data Vital Signs (Past 12 Hours) Vital Signs Temp Pulse Resp BP O2 Del Method 10/03/24 03:30 36.5 C 81 16 104/68 Room Air 10/02/24 23:00 37.0 C 78 16 97/64 L Room Air
[2024-10-03 17:30] VITALS: RESP 16
[2024-10-03] MEDS: bisacodyL 5 MG TABEC PO SCH (20:05)
[2024-10-04 06:49] LABS: Hematocrit (blood only) 32.4 % (37.0-47.0); Hemoglobin 11.1 g/dl (12.0-16.0)
[2024-10-04 08:43] VITALS: BP 98/65; TEMP 98.8; O2SAT 98
--- NOTE | 2024-10-04 10:19 | Obstetrical Progress Note ---
Date of Service October 04, 2024 Subjective Ambulation: ambulating normally Voiding: no voiding problems Passing Gas:: Yes Diet Tolerance:: regular diet Lochia:: Small Feeding Type:: breast feeding Current Pain Level(1-10): 0 doing well. plans for d/c. Physical Exam Constitutional WD/WN, vitals as above Gastrointestinal (Abdomen) Inspection/Auscultation: abdomen normal to inspection Musculoskeletal Extremities: extremities normal to inspection Skin no rashes, warm and dry Neurologic patellar DTR's 2+ bilat, sensation intact Psychiatric A+Ox3, euthymic affect Results & Data Vital Signs (Past 12 Hours) Vital Signs Temp Pulse Pulse Resp BP Pulse Ox O2 Del Method 10/04/24 08:30 37.1 C 87 16 98/65 L 98 Room Air 10/03/24 23:10 37.3 C 76 16 101/59 L 97 Room Air Laboratory Results 10/02/24 10/03/24 10/04/24 01:07 05:40 06:20 WBC 11.61 H 8.33 RBC 3.83 L 3.40 L Hgb 12.6 11.3 L 11.1 L Hct 35.5 L 32.7 L 32.4 L MCV 92.7 96.2 MCH 32.9 33.2 MCHC 35.5 34.6 RDW Std Deviation 41.3 44.8 RDW Coeff of Dyan 12.2 12.7 Plt Count 252 238 MPV 9.3 L 9.4 Treponema pallidum Ab Negative
[2024-10-04 10:44] VITALS: PULSE 76
== END 2024-10-04 11:40 | disposition home or self-care (01) | DRG 807 ==
LOC: OPB 00:22 → 4S1 00:30 → 4E2 07:47